=== PATIENT | female | born 1955 | race Caucasian/White ===

== ENCOUNTER → 2017-01-30 | Outpatient (CLI) | payer OTHER ==
--- NOTE | 2017-01-31 09:20 | MM ---
Reason for exam: screening (asymptomatic). Last mammogram was performed 1 year and 2 months ago. History: Patient is postmenopausal. Benign core biopsy of the right breast, March 2007. Took estrogen for 12 years beginning at age 40. Physical Findings: A clinical breast exam by your physician is recommended on an annual basis and results should be correlated with mammographic findings. MG 3D Screening Mammo W/Cad Bilateral CC and MLO view(s) were taken. Prior study comparison: November 23, 2015, bilateral MG screening mammo w CAD. April 14, 2014, bilateral MG screening mammo w CAD. There are scattered fibroglandular densities. Previous mammotome biopsy in the right breast. There is chronic nodularity in the right breast. No significant changes when compared with prior studies. ASSESSMENT: Benign, BI-RAD 2 RECOMMENDATION: Routine screening mammogram of both breasts in 1 year.
== END | disposition home or self-care (01) ==
LOC: RADMAMWWP 08:57
PROVIDERS: ATTEND Family Medicine
DX: Z12.31 Encounter for screening mammogram for malignant neoplasm of breast (principal)
CPT/HCPCS: 77063; G0202

== ENCOUNTER → 2017-05-07 | Outpatient (CLI) | payer OTHER ==
[2017-05-07 11:31] LABS: Basophils % (A) 0 %; Eosinophils # (A) 0.1 k/uL (0-0.7); Eosinophils % (A) 2 %; HCT 46.1 % (34.0-46.0); HGB 14.3 gm/dL (11.4-16.0); Lymphocytes # (A) 1.8 k/uL (1.0-4.8); Lymphocytes % (A) 32 %; MCH 27.6 pg (25.0-35.0); MCV 88.8 fL (80.0-100.0); Mean Platelet Volume 8.2; Monocytes # (A) 0.4 k/uL (0-1.0); Monocytes % (A) 8 %; Neutrophils # (A) 3.2 k/uL (1.3-7.7); Neutrophils % (A) 56 %; Platelet Count 250 k/uL (150-450); RBC 5.19 m/uL (3.80-5.40); WBC 5.8 k/uL (3.8-10.6)
--- NOTE | 2017-05-07 11:40 | CT ---
EXAMINATION TYPE: CT angio chest DATE OF EXAM: 05/07/2017 COMPARISON: NONE HISTORY: Shortness of breath rule out pulmonary embolism CT DLP: 180.00 mGycm. Automated Exposure Control for Dose Reduction was Utilized. CONTRAST: CTA scan of the thorax is performed without and with IV Contrast, patient injected with 100 ml mL of Omnipaque 350, pulmonary embolism protocol. MIP Images are created on CT scanner and reviewed. FINDINGS: LUNGS: There is mild biapical pleural/parenchymal scarring. There is no suspicious parenchymal nodule or mass. There is no pleural effusion or pneumothorax seen. The tracheobronchial tree is patent. MEDIASTINUM: There is suboptimal bolus with near equal contrast seen in right and left heart systems but there is no CT evidence for pulmonary embolism. There are no greater than 1 cm hilar or mediasti nal lymph nodes. No cardiomegaly or pericardial effusion is seen. OTHER: There is moderate multilevel spurring in the thoracic spine. There is 1.1 cm splenic artery an eurysm axial image 143 incidentally noted. Nodular density inferior medial quadrant right breast ante rior to biopsy clip axial image 58 series 4 corresponds to chronic nodularity on review of recent humaira mograms. IMPRESSION: No CT evidence for pulmonary embolism. No suspicious acute pulmonary process. Results communicated to ordering physician via telephone as requested at time of dictation. A Document Only message has been documented for Nellie Kirkpatrick III, MD in the [facility] system on 05/07/2017 11:36 AM, Message ID [id number].
[2017-05-07 12:00] LABS: ALT 16 U/L (9-52); AST 29 U/L (14-36); Albumin 4.7 g/dL (3.5-5.0); Alkaline Phosphatase 88 U/L (38-126); Anion Gap 11 mmol/L; Blood Urea Nitrogen 15 mg/dL (7-17); Calcium 9.8 mg/dL (8.4-10.2); Carbon Dioxide 30 mmol/L (22-30); Chloride 102 mmol/L (98-107); Glucose 97 mg/dL (74-99); Potassium 4.7 mmol/L (3.5-5.1); Sodium 143 mmol/L (137-145); Total Bilirubin 0.4 mg/dL (0.2-1.3); Total Protein 7.8 g/dL (6.3-8.2)
[2017-05-07 12:21] LABS: Troponin I <0.012 ng/mL (0.000-0.034)
[2017-05-07 15:21] LABS: Creatine Kinase MB 1.1 ng/mL (0.0-2.4)
== END | disposition home or self-care (01) ==
LOC: RADCTMAIN 10:52
PROVIDERS: ATTEND Family Medicine
DX: R06.02 Shortness of breath (principal); R07.9 Chest pain, unspecified
CPT/HCPCS: 85379; 80053; 82553; 84484; 85025; 71275; 36415; Q9967

== ENCOUNTER → 2018-02-12 | Outpatient (CLI) | payer OTHER ==
--- NOTE | 2018-02-12 17:26 | BD ---
EXAMINATION TYPE: Axial Bone Density DATE OF EXAM: 02/12/2018 COMPARISON: 11.23.2015 CLINICAL HISTORY: 62 YR OLD FEMALE.....ICD-10 CODE: M810.0 OSTEOPOROSIS Height: 64 Weight: 131 FRAX RISK QUESTIONS: Family History (Parent hip fracture): NO FX History of Fracture in Adulthood: YOUNG ADULT ONLY Secondary Osteoporosis: YES 3. Menopause before 45: YES, AT AGE 40 YRS OLD RISK FACTORS HISTORY OF: HX OF RT ANKLE YOUNG ADULT Family History of Osteoporosis: YES, HER MOTHER, NO FX Active: YES Postmenopausal woman: YES AT AGE 40 YRS OLD, Take estrogen and/or progesterone medications: YES, FOR 12 YRS IN PAST...NONE NOW MEDICATIONS: Osteoporosis Medications: YES, FOSAMAX, FOR 2 YRS NOW Additional Medications: XANAX PRN, BP MEDS, CALCIUM AND VIT D3, Additional History: ANXIETY, HYPERTENSION EXAM MEASUREMENTS: Bone mineral densitometry was performed using the [employer] System. Bone mineral density as measured about the Lumbar spine is: ----- L1-L4(G/cm2): 1.174 T Score Values are as follows: ----- L1: -0.1 ----- L2: -0.6 ----- L3: 0.7 ----- L4: -0.4 ----- L1-L4: -0.1 Bone mineral density has: Increased 7.2% since study of: 11.23.2015 Bone mineral density about the R hip (g/cm2): 0.711 Bone mineral density about the L hip (g/cm2): 0.782 T Score values are as follows: -----R Neck: -2.3 -----L Neck: -1.0 -----R Total: -2.4 -----L Total: -1.8 Bone mineral density has: Increased 5.1% since study of: 11.23.2015 FRAX%s: THERE IS A 11.3% CHANCE FOR A MAJOR OSTEOPOROTIC FX AND A 2.1% FOR HIP FX....PROBABILITY OF FX IN 10 YRS TIME IMPRESSION: Osteopenia (T Score between -2.5 and -1). There is slightly increased risk of fracture and the patient may be considered for treatment. Re-Screen 2-5 years. NOTE: T-SCORE=SD OF THE YOUNG ADULT MEAN.
--- NOTE | 2018-02-14 08:37 | MM ---
Reason for exam: screening (asymptomatic). Last mammogram was performed 1 year ago. History: Patient is postmenopausal. Benign core biopsy of the right breast, March 2007. Took estrogen for 12 years beginning at age 40. Physical Findings: A clinical breast exam by your physician is recommended on an annual basis and results should be correlated with mammographic findings. MG Screening Mammo w CAD Bilateral CC and MLO view(s) were taken. Prior study comparison: January 30, 2017, bilateral MG 3d screening mammo w/cad. November 23, 2015, bilateral MG screening mammo w CAD. The breast tissue is heterogeneously dense. This may lower the sensitivity of mammography. Previous mammotome biopsy in the right breast. There is chronic nodularity in the right breast. No significant changes when compared with prior studies. ASSESSMENT: Negative, BI-RAD 1 RECOMMENDATION: Routine screening mammogram of both breasts in 1 year.
== END | disposition home or self-care (01) ==
LOC: RADMAMWWP 14:20
PROVIDERS: ATTEND Family Medicine
DX: Z12.31 Encounter for screening mammogram for malignant neoplasm of breast (principal); M85.851 Other specified disorders of bone density and structure, right thigh; M85.852 Other specified disorders of bone density and structure, left thigh
CPT/HCPCS: 77067; 77080

== ENCOUNTER 2018-12-14 05:42 | Observation (INO) | payer OTHER ==
--- NOTE | 2018-12-14 06:48 | CT ---
EXAMINATION TYPE: CT brain wo con DATE OF EXAM: 12/14/2018 COMPARISON: None HISTORY: Syncopal episode with fall. CT DLP: 1098.4 mGycm Automated exposure control for dose reduction was used. FINDINGS: Ventricles have normal size. There is no mass effect nor midline shift. There is no sign of intracran ial hemorrhage. Calvarium is intact. There is no evidence of cerebral edema. IMPRESSION: NEGATIVE CT SCAN OF THE BRAIN.
--- NOTE | 2018-12-14 06:49 | XR ---
EXAMINATION TYPE: XR chest 2V DATE OF EXAM: 12/14/2018 COMPARISON: NONE HISTORY: Syncope TECHNIQUE: Frontal and lateral views of the chest are obtained. FINDINGS: Heart and mediastinum are normal. Lungs are clear. Diaphragm is normal. There are chest le ads. Bony thorax is intact. IMPRESSION: Normal chest.
[2018-12-14 07:02] LABS: Basophils % (A) 1 %; Eosinophils # (A) 0.2 k/uL (0-0.7); Eosinophils % (A) 4 %; HCT 38.2 % (34.0-46.0); HGB 13.1 gm/dL (11.4-16.0); Lymphocytes # (A) 2.3 k/uL (1.0-4.8); Lymphocytes % (A) 40 %; MCH 28.5 pg (25.0-35.0); MCHC 34.3 g/dL (31.0-37.0); MCV 83.2 fL (80.0-100.0); Mean Platelet Volume 7.6; Monocytes # (A) 0.4 k/uL (0-1.0); Monocytes % (A) 7 %; Neutrophils # (A) 2.6 k/uL (1.3-7.7); Neutrophils % (A) 46 %; Platelet Count 239 k/uL (150-450); RBC 4.59 m/uL (3.80-5.40); WBC 5.7 k/uL (3.8-10.6)
[2018-12-14 07:15] LABS: ALT 21 U/L (9-52); AST 36 U/L (14-36); African American GFR (CKD) >90 (>60 ml/min/1.73 sqM); Albumin 3.8 g/dL (3.5-5.0); Alkaline Phosphatase 68 U/L (38-126); Anion Gap 9 mmol/L; Blood Urea Nitrogen 19 mg/dL (7-17); Calcium 9.1 mg/dL (8.4-10.2); Carbon Dioxide 25 mmol/L (22-30); Chloride 104 mmol/L (98-107); Glucose 156 mg/dL (74-99); Potassium 3.9 mmol/L (3.5-5.1); Sodium 138 mmol/L (137-145); Total Bilirubin 0.5 mg/dL (0.2-1.3); Total Protein 6.5 g/dL (6.3-8.2)
[2018-12-14 07:26] LABS: INR 0.9 (<1.2); Prothrombin Time 9.7 sec (9.0-12.0)
[2018-12-14 07:32] LABS: D-Dimer 0.73 mg/L FEU (<0.60)
[2018-12-14 07:32] LABS: Appearance,Urine Clear (Clear); Bilirubin,Urine Negative (Negative); Blood,Urine Trace (Negative); Color,Urine Yellow; Glucose,Urine (UA) Negative (Negative); Hyaline Casts,Urine 8 /lpf (0-2); Ketones,Urine Negative (Negative); Leukocyte Esterase,Urine Small (Negative); Mucus,Urine Few /hpf; Nitrite,Urine Negative (Negative); PH, Urine 5.5 (5.0-8.0); Protein,Urine 1+ (Negative); RBC,Urine 3 /hpf (0-5); Specific Gravity,Urine 1.022 (1.001-1.035); Squamous Epithelial Cell,Urine 1 /hpf (0-4); Urobilinogen,Urine <2.0 mg/dL (<2.0); WBC,Urine 7 /hpf (0-5)
--- NOTE | 2018-12-14 08:41 | CT ---
EXAMINATION TYPE: CT angio chest DATE OF EXAM: 12/14/2018 8:31 AM COMPARISON: Previous study dated 05/07/2017. HISTORY: elevated Ddimer CT DLP: 271.2 mGycm Automated exposure control for dose reduction was used. CONTRAST: CTA scan of the thorax is performed with IV Contrast, patient injected with 78 mL of Isovue 370, pulm onary embolism protocol. . FINDINGS: There is scarring at the lung apices bilaterally. There is a stable spiculated density in t he right lung apex. The lungs are otherwise clear. There is no suspicious axillary, internal mammary, mediastinal or hilar adenopathy. There is no evidence of pulmonary embolus. The aorta is normal in caliber without evidence of dissection. No pleural or pericardial fluid. The heart is not enlarged. Visualized portions of the upper abdomen are normal. There is hypertrophic spondylosis within the dorsal spine. IMPRESSION: 1. THIS EXAMINATION IS NEGATIVE FOR PULMONARY EMBOLUS. 2. STABLE FINDING THE LUNG APICES BILATERALLY
--- NOTE | 2018-12-14 08:49 | ED ---
General Adult HPI - General Chief complaint: Syncope Stated complaint: Syncope Time Seen by Provider: 12/14/18 06:09 Source: patient, EMS Mode of arrival: EMS Limitations: no limitations - History of Present Illness Initial comments: 63-year-old female past history of hypertension presents emergency department for evaluation of syncopal episode. Patient states his prior to arrival she collapsed in her bathroom. She was found by her mother who heard the patient fall. Patient was found face down no seizure-like activity. And was aroused within 1-3 minutes. No bladder incontinence. Patient complaining of headache. Patient states she no chest pain source of breath or any symptoms prior SI for feeling as though she was lightheaded and going to pass out. Patient states she woke up in the middle the night to wash her retainer. Patient denies any suspicious symptoms a days prior. Patient denies experiencing chest pain or shortness of breath in the past. Patient denies any cardiac history. Patient denies any history of DVT or pulmonary embolism denies any leg swelling, hemoptysis. Patient denies any sensation of her heart racing. Patient denies any severe neck pain she denies any dizziness nausea abdominal pain all amount of stools hematemesis or bloody stools. Remaining review of system negative. Upon arrival patient appears well signs acute distress. Patient is on telemetry and was brought in by EMS. - Related Data Home Medications Medication Instructions Recorded Confirmed ALPRAZolam [Xanax] 0.125 - 0.25 mg PO TID PRN 12/14/18 12/14/18 Alendronate Sodium [Fosamax] 70 mg PO TU 12/14/18 12/14/18 Benazepril [Lotensin] 5 mg PO HS 12/14/18 12/14/18 Allergies Allergy/AdvReac Type Severity Reaction Status Date / Time No Known Allergies Allergy Verified 12/14/18 09:24 Review of Systems ROS Statement: Those systems with pertinent positive or pertinent negative responses have been documented in the HPI. ROS Other: All systems not noted in ROS Statement are negative. Past Medical History Past Medical History: Hypertension History of Any Multi-Drug Resistant Organisms: None Reported Past Surgical History: No Surgical Hx Reported Past Psychological History: No Psychological Hx Reported Smoking Status: Never smoker Past Alcohol Use History: Occasional Past Drug Use History: None Reported General Exam - General Exam Comments Initial Comments: General: The patient is awake and alert, in no distress, and does not appear acutely ill. Eye: +3 mm pupils are equal, round and reactive to light, extra-ocular movements are intact. No nystagmus. There is normal conjunctiva bilaterally. No signs of icterus. Ears, nose, mouth and throat: There are moist mucous membranes and no oral lesions. Neck: The neck is supple, there is no tenderness or JVD. No midlines tenderness to palpation of the c-spine, patient does have paravertebral t enderness. Full ROM without limitations or severe pain. Cardiovascular: There is a regular rate and rhythm. No murmur, rub or gallop is appreciated. Respiratory: Lungs are clear to auscultation, respirations are non-labored, breath sounds are equal. No wheezes, stridor, rales, or rhonchi. Gastrointestinal: Soft, non-distended, non-tender abdomen without masses or organomegaly noted. There is no rebound or guarding present. Musculoskeletal: Normal ROM, no tenderness. Strength 5/5. Sensation intact. Pulses equal bilaterally 2+. Neurological: A&O x 3. CN II-XII intact, There are no obvious motor or sensory deficits. Coordination appears grossly intact. Speech is normal. Skin: Skin is warm and dry and no rashes or lesions are noted. No LE edema. Psychiatric: Cooperative, appropriate mood & affect, normal judgment. Limitations: no limitations Course Vital Signs 12/14/18 12/14/18 05:50 07:16 Temperature 97.8 F Pulse Rate 54 L Pulse Rate [ 67 Sitting] Pulse Rate [ 68 Standing] Pulse Rate [ 64 Supine] Respiratory 18 Rate Blood Pressure 145/83 Blood Pressure 151/83 [Sitting] Blood Pressure 136/78 [Standing] Blood Pressure 136/78 [Supine] O2 Sat by Pulse 98 Oximetry EKG Findings - EKG Comments: EKG Findings:: Ventricular rate 53 bpm, NH interval 170 ms, QRS duration 92 ms, QT/QTC 450/422 ms. This is sinus bradycardia, no ST elevation or depression. No contiguous T wave inversions. EKG was percent interpreted and reviewed by my attending provider. Medical Decision Making - Medical Decision Making 63-year-old female presents emergency department for syncopal episode. Patient does not have positive orthostatics. Patient does not appear dry on examination no evidence of fluid overload. Lungs clear. Initial troponin negative. No compressive chest pain or shortness of breath. Patient has no leg swelling or history of DVT pulmonary. D-dimer returned elevated, CTA (-). CT brain obtained given history of head injury. Recommend or Wooten signs or signs of significant skull trauma on examination. Patient has no focal neurolgical def icits. Paravertebral tenderness of c-spine, patient describes as very mild. Plain films (-) for acute process. Patient Labs stable. VS stable. At this time that caused the patient's syncopal episode is unknown. Given patient's age--we will admit patient for cardiac evaluation including echo. Dr. Wade spoke with admitting provider Dr Simpson in detail who accepted admission. - Lab Data Result diagrams: 12/14/18 05:50 12/14/18 05:50 Lab Results 12/14/18 12/14/18 12/14/18 Range/Units 05:50 05:50 05:50 WBC 5.7 (3.8-10.6) k/uL RBC 4.59 (3.80-5.40) m/uL Hgb 13.1 (11.4-16.0) gm/dL Hct 38.2 (34.0-46.0) % MCV 83.2 (80.0-100.0) fL MCH 28.5 (25.0-35.0) pg MCHC 34.3 (31.0-37.0) g/dL RDW 13.0 (11.5-15.5) % Plt Count 239 (150-450) k/uL Neutrophils % 46 % Lymphocytes % 40 % Monocytes % 7 % Eosinophils % 4 % Basophils % 1 % Neutrophils # 2.6 (1.3-7.7) k/uL Lymphocytes # 2.3 (1.0-4.8) k/uL Monocytes # 0.4 (0-1.0) k/uL Eosinophils # 0.2 (0-0.7) k/uL Basophils # 0.0 (0-0.2) k/uL PT 9.7 (9.0-12.0) sec INR 0.9 (<1.2) APTT 21.0 L (22.0-30.0) sec D-Dimer 0.73 H (<0.60) mg/L FEU Sodium 138 (137-145) mmol/L Potassium 3.9 (3.5-5.1) mmol/L Chloride 104 (98-107) mmol/L Carbon Dioxide 25 (22-30) mmol/L Anion Gap 9 mmol/L BUN 19 H (7-17) mg/dL Creatinine 0.72 (0.52-1.04) mg/dL Est GFR (CKD-EPI)AfAm >90 (>60 ml/min/1.73 sqM) Est GFR (CKD-EPI)NonAf 90 (>60 ml/min/1.73 sqM) Glucose 156 H (74-99) mg/dL Calcium 9.1 (8.4-10.2) mg/dL Total Bilirubin 0.5 (0.2-1.3) mg/dL AST 36 (14-36) U/L ALT 21 (9-52) U/L Alkaline Phosphatase 68 (38-126) U/L Troponin I (0.000-0.034) ng/mL Total Protein 6.5 (6.3-8.2) g/dL Albumin 3.8 (3.5-5.0) g/dL Urine Color Urine Appearance (Clear) Urine pH (5.0-8.0) Ur Specific Corbin (1.001-1.035) Urine Protein (Negative) Urine Glucose (UA) (Negative) Urine Ketones (Negative) Urine Blood (Negative) Urine Nitrite (Negative) Urine Bilirubin (Negative) Urine Urobilinogen (<2.0) mg/dL Ur Leukocyte Esterase (Negative) Urine RBC (0-5) /hpf Urine WBC (0-5) /hpf Ur Squamous Epith Cells (0-4) /hpf Hyaline Casts (0-2) /lpf Urine Mucus (None) /hpf 12/14/18 12/14/18 Range/Units 05:50 07:22 WBC (3.8-10.6) k/uL RBC (3.80-5.40) m/uL Hgb (11.4-16.0) gm/dL Hct (34.0-46.0) % MCV (80.0-100.0) fL MCH (25.0-35.0) pg MCHC (31.0-37.0) g/dL RDW (11.5-15.5) % Plt Count (150-450) k/uL Neutrophils % % Lymphocytes % % Monocytes % % Eosinophils % % Basophils % % Neutrophils # (1.3-7.7) k/uL Lymphocytes # (1.0-4.8) k/uL Monocytes # (0-1.0) k/uL Eosinophils # (0-0.7) k/uL Basophils # (0-0.2) k/uL PT (9.0-12.0) sec INR (<1.2) APTT (22.0-30.0) sec D-Dimer (<0.60) mg/L FEU Sodium (137-145) mmol/L Potassium (3.5-5.1) mmol/L Chloride (98-107) mmol/L Carbon Dioxide (22-30) mmol/L Anion Gap mmol/L BUN (7-17) mg/dL Creatinine (0.52-1.04) mg/dL Est GFR (CKD-EPI)AfAm (>60 ml/min/1.73 sqM) Est GFR (CKD-EPI)NonAf (>60 ml/min/1.73 sqM) Glucose (74-99) mg/dL Calcium (8.4-10.2) mg/dL Total Bilirubin (0.2-1.3) mg/dL AST (14-36) U/L ALT (9-52) U/L Alkaline Phosphatase (38-126) U/L Troponin I <0.012 (0.000-0.034) ng/mL Total Protein (6.3-8.2) g/dL Albumin (3.5-5.0) g/dL Urine Color Yellow Urine Appearance Clear (Clear) Urine pH 5.5 (5.0-8.0) Ur Specific [place] 1.022 (1.001-1.035) Urine Protein 1+ H (Negative) Urine Glucose (UA) Negative (Negative) Urine Ketones Negative (Negative) Urine Blood Trace H (Negative) Urine Nitrite Negative (Negative) Urine Bilirubin Negative (Negative) Urine Urobilinogen <2.0 (<2.0) mg/dL Ur Leukocyte Esterase Small H (Negative) Urine RBC 3 (0-5) /hpf Urine WBC 7 H (0-5) /hpf Ur Squamous Epith Cells 1 (0-4) /hpf Hyaline Casts 8 H (0-2) /lpf Urine Mucus Few H (None) /hpf Disposition Clinical Impression: Episode of syncope, Head injury Disposition: ADMITTED IP TO THIS HOSP Condition: Stable Is patient prescribed a controlled substance at d/c from ED?: No Referrals: Samia Phillips MD [Primary Care Provider] - 1-2 days Time of Disposition: 10:24 Decision to Admit Reason: Admit from EC Decision Date: 12/14/18 Decision Time: 10:24
--- NOTE | 2018-12-14 09:34 | XR ---
EXAMINATION TYPE: XR cervical spine comp , 6 VIEWS DATE OF EXAM ORDERED: 12/14/2018 HISTORY: tenderness. COMPARISON: None. FINDINGS: There is a minimal antegrade listhesis of C4 on C5. Alignment is otherwise maintained. Trevor antoaxial relationships are normal. No fractures are seen. There is intervertebral foraminal narrowin g on the right, most marked at C5-6 and C6-7 but also present at C4-5. Intervertebral foramina on the left appear well maintained. There is uncovertebral joint disease present at C5-6. No fractures are seen. Prevertebral soft tissues are normal. IMPRESSION: 1. NO ACUTE OSSEOUS LESION. 2. DEGENERATIVE CHANGE. 3. MULTILEVEL INTERVERTEBRAL FORAMINAL NARROWING ON THE RIGHT.
[2018-12-14] MEDS ORDERED: NALOXONE 0.4 MG/ML 1 ML VIAL IV PRN (09:41)
[2018-12-14] MEDS ORDERED: SODIUM CHLORIDE 0.9% 1,000 ML IV SCH (09:45)
--- NOTE | 2018-12-14 13:09 | P.HPIM ---
History of Present Illness 63-year-old pleasant female came in after a syncopal episode her mother was was present at the time. patient felt lightheaded because before syncope patient denied any seizure-like activity patient was in and out of consciousness all throughout the right, denied any tongue biting seizure-like activity loss of bowel or bladder incontinence. Although patient has some memory deficits since that episode never had any memory issues in the past. Patient denied any fever chills diarrhea nausea vomiting. Patient's serum creatinine is within normal limits patient doesn't appear to be dehydrated EKG showed mild sinus bradycardia which I do not believe is contributing to her symptoms. Patient is admitted to monitor tech will will will monitor overnight. Patient had minimally elevated d-dimer because of which patient received a CAT scan of the chest which did not show any PE brain CT did not show any significant abnormality. We'll obtain echocardiogram. Orthostatic vitals are negative. Because of her memory deficits TIA need to be considered as a cause for possible transient global amnesia because of which are pending carotid Doppler as will continue with aspirin and will also obtain lipase panel patient is doing well now no focal neurological deficits no visual problems or hearing problems. Review of Systems REVIEW OF SYSTEMS: CONSTITUTIONAL: No fever, no malaise, no fatigue. HEENT: No recent visual problems or hearing problems. Denied any sore throat. CARDIOVASCULAR: No chest pain, orthopnea, PND, no palpitations, PULMONARY: No shortness of breath, no cough, no hemoptysis. GASTROINTESTINAL: No diarrhea, no nausea, no vomiting, no abdominal pain. NEUROLOGICAL: No headaches, no weakness, no numbness. HEMATOLOGICAL: Denies any bleeding or petechiae. GENITOURINARY: Denies any burning micturition, frequency, or urgency. MUSCULOSKELETAL/RHEUMATOLOGICAL: Denies any joint pain, swelling, or any muscle pain. ENDOCRINE: Denies any polyuria or polydipsia. The rest of the 14-point review of systems is negative. Past Medical History Past Medical History: Hypertension History of Any Multi-Drug Resistant Organisms: None Reported Past Surgical History: No Surgical Hx Reported Past Psychological History: No Psychological Hx Reported Smoking Status: Never smoker Past Alcohol Use History: Occasional Past Drug Use History: None Reported Medications and Allergies Home Medications Medication Instructions Recorded Confirmed Type ALPRAZolam [Xanax] 0.125 - 0.25 mg PO TID PRN 12/14/18 12/14/18 History Alendronate Sodium [Fosamax] 70 mg PO TU 12/14/18 12/14/18 History Benazepril [Lotensin] 5 mg PO HS 12/14/18 12/14/18 History Allergies Allergy/AdvReac Type Severity Reaction Status Date / Time No Known Allergies Allergy Verified 12/14/18 09:24 Physical Exam Vitals: Vital Signs Temp Pulse Pulse Pulse Pulse Resp BP 12/14/18 11:00 61 16 147/83 12/14/18 07:16 67 68 64 12/14/18 05:50 97.8 F 54 L 18 145/83 BP BP BP Pulse Ox 12/14/18 11:00 98 12/14/18 07:16 151/83 136/78 136/78 12/14/18 05:50 98 Intake and Output 12/13/18 12/14/18 12/14/18 22:59 06:59 14:59 Other: Weight 58.967 kg PHYSICAL EXAMINATION: GENERAL: The patient is alert and oriented x3, not in any acute distress. Well developed, well nourished. HEENT: Pupils are round and equally reacting to light. EOMI. No scleral icterus. No conjunctival pallor. Normocephalic, atraumatic. No pharyngeal erythema. No thyromegaly. CARDIOVASCULAR: S1 and S2 present. No murmurs, rubs, or gallops. PULMONARY: Chest is clear to auscultation, no wheezing or crackles. ABDOMEN: Soft, nontender, nondistended, normoactive bowel sounds. No palpable organomegaly. MUSCULOSKELETAL: No joint swelling or deformity. EXTREMITIES: No cyanosis, clubbing, or pedal edema. NEUROLOGICAL: Gross neurological examination did not reveal any focal deficits. SKIN: No rashes. Results CBC & Chem 7: 12/14/18 05:50 12/14/18 05:50 Labs: Abnormal Lab Results - Last 24 Hours (Table) 12/14/18 12/14/18 12/14/18 Range/Units 05:50 05:50 07:22 APTT 21.0 L (22.0-30.0) sec D-Dimer 0.73 H (<0.60) mg/L FEU BUN 19 H (7-17) mg/dL Glucose 156 H (74-99) mg/dL Urine Protein 1+ H (Negative) Urine Blood Trace H (Negative) Ur Leukocyte Esterase Small H (Negative) Urine WBC 7 H (0-5) /hpf Hyaline Casts 8 H (0-2) /lpf Urine Mucus Few H (None) /hpf Assessment and Plan Plan: Syncope: Most probably vasovagal event, obtain an echocardiogram will monitor here overnight on telemetry. Cousin that patient has some memory deficits TIAs and differential as a cause for possible transient global amnesia because of which I'll obtain a carotid Doppler and lipid panel as well as mentioned above. -Possibility of TIA that cannot be ruled out yet, continue with aspirin -Hypertension patient blood pressures fairly stable and not flow continue with her home medication
--- NOTE | 2018-12-14 14:51 | US ---
EXAMINATION TYPE: US carotid duplex BILAT DATE OF EXAM: 12/14/2018 COMPARISON: NONE CLINICAL HISTORY: tia. Syncope EXAM MEASUREMENTS: RIGHT: Peak Systolic Velocity (PSV) cm/sec ----- Right CCA: 63.3 ----- Right ICA: 90.7 ----- Right ECA: 109.2 ICA/CCA ratio: 1.4 RIGHT: End Diastole cm/sec ----- Right CCA: 17.1 ----- Right ICA: 30.0 ----- Right ECA: 13.9 LEFT: Peak Systolic Velocity (PSV) cm/sec ----- Left CCA: 67.7 ----- Left ICA: 107.7 ----- Left ECA: 106.3 ICA/CCA ratio: 1.6 LEFT: End Diastole cm/sec ----- Left CCA: 20.4 ----- Left ICA: 32.6 ----- Left ECA: 12.4 VERTEBRALS (direction of flow): Right Vertebral: Antegrade Left Vertebral: Antegrade Rhythm: Normal No elevated velocities, no significant stenosis. Mild intimal thickening appears to be present on the right. Atheromatous plaquing and more moderate i ntimal thickening is present on the left. Turbulent flow is evident on the left with filling of the a coustic window. IMPRESSION: 1. Atheromatous plaquing and intimal thickening present bilaterally, greater on the left. 2. Significant flow-limiting stenosis based on velocities is not present. Criteria for Assigning % of Stenosis / Diameter reduction (Estimation based on the indirect measurements of the internal carotid artery velocities (ICA PSV). 1. Normal (no stenosis)=ICA PSV < 125 cm/s: ratio < 2.0: ICA EDV<40 cm/s. 2. Less than 50% stenosis=ICA PSV < 125 cm/s: ratio < 2.0: ICA EDV<40 cm/s. 3. 50 to 69% stenosis=ICA PSV of 125 to 230 cm/s: ration 2.0 ? 4.0: ICA EDV 40-100 cm/s. 4. Greater than 70% stenosis to near occlusion= ICA PSV > 230 cm/s: ratio > 4.0: ICA EDV > 100 cm/s. 5. Near occlusion= ICA PSV velocities may be low or undetectable: variable ratio and ICA EDV. 6. Total occlusion=unable to detect flow.
--- NOTE | 2018-12-14 16:07 | ECHOF ---
Referral Reason:syncope MEASUREMENTS -------- HEIGHT: 162.6 cm WEIGHT: 59.0 kg BP: RVIDd: 3.5 cm (< 3.3) IVSd: 1.0 cm (0.6 - 1.1) LVIDd: 4.0 cm (3.9 - 5.3) LVPWd: 1.1 cm (0.6 - 1.1) IVSs: 1.3 cm LVIDs: 2.4 cm LVPWs: 1.4 cm LA Diam: 3.2 cm (2.7 - 3.8) LAESV Index (A-L): 19.45 ml/m Ao Diam: 2.7 cm (2.0 - 3.7) AV Cusp: 1.8 cm (1.5 - 2.6) LA Diam: 2.8 cm (2.7 - 3.8) MV EXCURSION: 17.614 mm (> 18.000) MV EF SLOPE: 58 mm/s (70 - 150) EPSS: 0.2 cm MV E James: 0.70 m/s MV DecT: 298 ms MV A James: 0.85 m/s MV E/A Ratio: 0.82 RAP: 5.00 mmHg RVSP: 16.30 mmHg FINDINGS -------- Sinus rhythm. This was a technically good study. LV size, wall thickness and systolic function are normal, with an EF greater than 55%. The left salas tricular size is normal. The diastolic filling pattern is normal for the age of the patient 10.14. The right ventricle is normal in size. Normal LA size by volume 22+/-6 ml/m2. The right atrial size is normal. The aortic valve is trileaflet, and appears structurally normal. No aortic stenosis or regurgitation. The mitral valve is normal. Mild mitral regurgitation is present. Mild tricuspid regurgitation present. There is no evidence of pulmonary hypertension. The right v entricular systolic pressure, as measured by Doppler, is 16.30mmHg. Trace/mild (physiologic) pulmonic regurgitation. The aortic root size is normal. There is no pericardial effusion. CONCLUSIONS -------- 1. Sinus rhythm. 2. This was a technically good study. 3. LV size, wall thickness and systolic function are normal, with an EF greater than 55%. 4. The left ventricular size is normal. 5. The diastolic filling pattern is normal for the age of the patient 10.14 6. Normal LA size by volume 22+/-6 ml/m2. 7. The aortic valve is trileaflet, and appears structurally normal. No aortic stenosis or regurgitati on. 8. Mild mitral regurgitation is present. 9. Mild tricuspid regurgitation present. 10. There is no evidence of pulmonary hypertension. 11. Trace/mild (physiologic) pulmonic regurgitation. 12. The aortic root size is normal. 13. There is no pericardial effusion. AIR GUN OPERATOR: Arabella Guerrero RDCS
--- NOTE | 2018-12-14 17:41 | CONS ---
CONSULTATION Mrs. Cardenas is a 63-year-old female with no prior documented history coronary artery disease, history of hypertension, who presented to the emergency room after a syncopal episode. 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 She had no tonic-clonic activity, no loss of bladder control and no focal weakness. She is feeling well this morning. She is usually reasonably active physically, has no exertional chest discomfort, has no history of cardiac disease. She has rare palpitations that have been benign in the past. She has no recent syncope. No PND, orthopnea or peripheral edema. Her coronary risk factors are remarkable for hypertension. She is nondiabetic, a nonsmoker. No hyperlipidemia. MEDICATIONS: Her medications include: 1. Lotensin 5 mg daily. 2. Fosamax. 3. Xanax on a p.r.n. basis. REVIEW OF SYSTEMS: RESPIRATORY SYSTEM: No recent wheezing. No cough. No history of obstructive lung disease. GI SYSTEM: No recent GI bleeding. No peptic ulcer disease. SYSTEM: No dysuria or hematuria. NERVOUS SYSTEM: No stroke or seizure. PHYSICAL EXAMINATION: She is a 63-year-old female, alert, oriented, in no apparent distress. Blood pressure 147/80 with a heart rate in the 60s. Patient had mild orthostasis earlier. HEAD: Normocephalic. Eyes: Sclerae anicteric. NECK: Good carotid upstroke. No bruit. No jugular venous distention. LUNGS: Clear to auscultation. HEART: Regular rate and rhythm. S1, S2. No S3. No S4. No murmur or rub. ABDOMEN: Soft, nontender. Positive bowel sounds. No organomegaly. EXTREMITIES: No edema. Intact distal pulses. LAB DATA/IMAGING: Lab data revealed a troponin less than 0.012 for 2 samples. BUN and creatinine 19 and 0.72. Potassium 3.9. D-dimer 0.73. Hemoglobin of 13.1. CT angiogram of the chest revealed no evidence of pulmonary embolism. Carotid duplex scan revealed no significant disease. EKG revealed sinus bradycardia, rate of 53, with nonspecific ST-T wave changes. IMPRESSION: 1. Syncopal episode, probably orthostatic hypotension. 2. History of hypertension. RECOMMENDATIONS: Will obtain echocardiogram, increase her level of activity, follow her blood pressure and rhythm. If there is no evidence of arrhythmia, then no further cardiac workup will be needed at this time. Thank you for this consult. Will follow with you. RAFAT / ANGELLA: [id number] /
[2018-12-14] MEDS ORDERED: ACETAMINOPHEN TAB 325 MG TAB PO PRN (20:00)
[2018-12-14 20:17] VITALS: RESP 16
[2018-12-14] MEDS ORDERED: LISINOPRIL 5 MG TAB PO SCH (21:00)
[2018-12-15 05:40] LABS: Cholesterol 226 mg/dL (<200); HDL Cholesterol 60 mg/dL (40-60); LDL Cholesterol,Calculated 147 mg/dL (0-99); Triglycerides 96 mg/dL (<150)
--- NOTE | 2018-12-15 08:33 | P.DS ---
Providers Date of admission: 12/14/18 09:42 Attending physician: Lico Simpson Consults: 12/14/18 09:42 Consult Physician Routine Consulting Provider: Rajesh Cartagena Consult Reason/Comments: syncope Do you want consulting provider notified?: Yes [facility] Course: 63-year-old pleasant female came in after a syncopal episode her mother was was present at the time. patient felt lightheaded because before syncope patient denied any seizure-like activity patient was in and out of consciousness all throughout the right, denied any tongue biting seizure-like activity loss of bowel or bladder incontinence. Although patient has some memory deficits since that episode never had any memory issues in the past. Patient denied any fever chills diarrhea nausea vomiting. Patient's serum creatinine is within normal limits patient doesn't appear to be dehydrated EKG showed mild sinus bradycardia which I do not believe is contributing to her symptoms. Patient is admitted to property assessment monitor will will will monitor overnight. Patient had minimally elevated d-dimer because of which patient received a CAT scan of the chest which did not show any PE brain CT did not show any significant abnormality. We'll obtain echocardiogram. Orthostatic vitals are negative. Because of her memory deficits TIA need to be considered as a cause for possible transient global am nesia because of which are pending carotid Doppler as will continue with aspirin and will also obtain lipase panel patient is doing well now no focal neurological deficits no visual problems or hearing problems. 12/15/2018 All the workup is negative by echocardiogram is within normal limits. Carotid Doppler did not show any significant abnormality. Patient the was in sinus rhythm without any rhythm abnormalities patient will be discharged today patient probably has vasovagal event. If for she has another syncopal episode the week she will need further workup with a Holter monitor and follow-up with cardiology at that time. Patient will be discharged today. Patient will be started on low-dose of aspirin and the and a statin patient's LDL is 147. Dietary counseling was provided. PHYSICAL EXAMINATION: GENERAL: The patient is alert and oriented x3, not in any acute distress. Well developed, well nourished. HEENT: Pupils are round and equally reacting to light. EOMI. No scleral icterus. No conjunctival pallor. Normocephalic, atraumatic. No pharyngeal erythema. No thyromegaly. CARDIOVASCULAR: S1 and S2 present. No murmurs, rubs, or gallops. PULMONARY: Chest is clear to auscultation, no wheezing or crackles. ABDOMEN: Soft, nontender, nondistended, normoactive bowel sounds. No palpable organomegaly. MUSCULOSKELETAL: No joint swelling or deformity. EXTREMITIES: No cyanosis, clubbing, or pedal edema. NEUROLOGICAL: Gross neurological examination did not reveal any focal deficits. SKIN: No rashes. Assessment and Plan Plan: Syncope: Most probably vasovagal event, workup as mentioned above -Possibility of TIA that cannot be ruled out yet, she'll be discharged on aspirin and a statin -Hypertension patient blood pressures fairly stable and not flow continue with her home medication Patient Condition at Discharge: Stable Plan - Discharge Summary Discharge Rx Participant: Yes New Discharge Prescriptions: New Aspirin 81 mg PO DAILY #30 chewable Atorvastatin Calcium [Lipitor] 20 mg PO HS #30 tab No Action Benazepril [Lotensin] 5 mg PO HS ALPRAZolam [Xanax] 0.125 - 0.25 mg PO TID PRN PRN Reason: Anxiety Alendronate Sodium [Fosamax] 70 mg PO TU Discharge Medication List ALPRAZolam [Xanax] 0.125 - 0.25 mg PO TID PRN 12/14/18 [History] Alendronate Sodium [Fosamax] 70 mg PO TU 12/14/18 [History] Benazepril [Lotensin] 5 mg PO HS 12/14/18 [History] Aspirin 81 mg PO DAILY #30 chewable 12/15/18 [Rx] Atorvastatin Calcium [Lipitor] 20 mg PO HS #30 tab 12/15/18 [Rx] Follow up Appointment(s)/Referral(s): Samia Phillips MD [Primary Care Provider] - 3 Days Discharge Disposition: HOME SELF-CARE
[2018-12-15] MEDS ORDERED: ASPIRIN 325 MG TAB PO SCH (09:00)
[2018-12-15] MEDS ORDERED: ASPIRIN 81 MG PO SCH (09:00)
--- NOTE | 2018-12-15 11:19 | P.PN ---
Subjective Progress Note Date: 12/15/18 physical pleasant 62-year-old female patient with history of hypertension. Presented by emergency department after syncopal episode. She woke up early in the morning yesterday at which time she went to the bathroom, stood up and was cleaning retainers when she felt dizzy and subsequently woke up on the floor. She had no evidence of seizure activity. Echocardiogram showed a normal LV systolic function with mild MR and mild TR. She's had no evidence of arrhythmias. Blood pressure is stable. She's had no complaints of dizziness, lightheadedness and no further syncope. Objective - Vital Signs Vital signs: Vital Signs Temp 98.1 F 12/15/18 04:00 Pulse 57 L 12/15/18 04:00 Resp 16 12/15/18 04:00 BP 142/82 12/15/18 04:00 Pulse Ox 97 12/15/18 04:00 Intake & Output 12/14/18 12/15/18 12/15/18 18:59 06:59 18:59 Intake Total 240 464 360 Balance 240 464 360 Weight 59.1 kg Intake: IV 20 0.9 20 Oral 240 444 360 Other: Voiding Method Toilet Toilet # Voids 3 - Exam PHYSICAL EXAMINATION: HEENT: [Head is atraumatic, normocephalic. Pupils equal, round. Neck is supple. There is no elevated jugular venous pressure.] HEART EXAMINATION: [Heart sounds regular, S1 and S2 normal. No murmur or gallop heard.] CHEST EXAMINATION:[ Lungs are clear to auscultation and precussion. No chest wall tenderness is noted on palpation or with deep breathing.] ABDOMEN: [ Soft, nontender. Bowel sounds are heard. No organomegaly noted]. EXTREMITIES:[ 2+ peripheral pulses with no evidence of peripheral edema and no calf tenderness noted]. NEUROLOGIC [patient is awake, alert and oriented x3.] . - Labs CBC & Chem 7: 12/14/18 05:50 12/14/18 05:50 Labs: Abnormal Lab Results - Last 24 Hours (Table) 12/15/18 Range/Units 05:00 Cholesterol 226 H (<200) mg/dL LDL Cholesterol, Calc 147 H (0-99) mg/dL Assessment and Plan Assessment: #1 syncopal episode, probably orthostatic hypotension #2 history of hypertension Plan: from cardiology's perspective no further cardiac workup is needed at this time. Patient may be discharged home from our standpoint. She will be scheduled for a follow-up with Dr. Alcaraz in the office in 1-2 weeks. RUBBISH COLLECTOR note has been reviewed, I agree with a documented findings and plan of care. Patient was seen and examined.
[2018-12-15 11:36] VITALS: BP 140/62; PULSE 70; TEMP 98
== END 2018-12-15 13:18 | disposition home or self-care (01) ==
LOC: EC 05:42 → 1SOBS 09:42 → 3SCARD 14:32
PROVIDERS: ADMIT Internal Medicine; ATTEND Internal Medicine
DX: R55 Syncope and collapse (principal); R42 Dizziness and giddiness; R79.89 Other specified abnormal findings of blood chemistry; R00.1 Bradycardia, unspecified; I10 Essential (primary) hypertension; M47.812 Spondylosis without myelopathy or radiculopathy, cervical region; M48.02 Spinal stenosis, cervical region; S09.90XA Unspecified injury of head, initial encounter; R41.3 Other amnesia; W19.XXXA Unspecified fall, initial encounter; Y92.002 Bathroom of unspecified non-institutional (private) residence as the place of occurrence of the external cause; Z79.83 Long term (current) use of bisphosphonates; Z79.899 Other long term (current) drug therapy
CPT/HCPCS: 99285; 36415; 94760; 93005; 93306; 85379; 80053; 80061; 84484; 85025; 85610; 85730; 81001; 72050; 71046; 93880; 70450; 71275; G0378 ×3; Q9967

== ENCOUNTER → 2019-02-25 | Outpatient (CLI) | payer OTHER ==
--- NOTE | 2019-02-27 13:34 | MM ---
Reason for exam: screening (asymptomatic). Last mammogram was performed 1 year ago. History: Patient is postmenopausal. Benign core biopsy of the right breast, March 2007. Took estrogen for 12 years beginning at age 40. Physical Findings: A clinical breast exam by your physician is recommended on an annual basis and results should be correlated with mammographic findings. MG 3D Screening Mammo W/Cad Bilateral CC and MLO view(s) were taken. Prior study comparison: February 12, 2018, bilateral MG screening mammo w CAD. January 30, 2017, bilateral MG 3d screening mammo w/cad. The breast tissue is heterogeneously dense. This may lower the sensitivity of mammography. Previous mammotome biopsy in the right and left breast. There is no discrete abnormality. No significant changes when compared with prior studies. ASSESSMENT: Benign, BI-RAD 2 RECOMMENDATION: Routine screening mammogram of both breasts in 1 year.
== END | disposition home or self-care (01) ==
LOC: RADMAMWWP 12:38
PROVIDERS: ATTEND Family Medicine
DX: Z12.31 Encounter for screening mammogram for malignant neoplasm of breast (principal)
CPT/HCPCS: 77063; 77067

== ENCOUNTER → 2019-03-07 | Outpatient (CLI) | payer OTHER ==
[2019-03-07 11:32] LABS: Basophils # (A) 0.1 k/uL (0-0.2); Basophils % (A) 2 %; Eosinophils # (A) 0.1 k/uL (0-0.7); Eosinophils % (A) 2 %; HCT 42.5 % (34.0-46.0); HGB 14.2 gm/dL (11.4-16.0); Lymphocytes # (A) 1.7 k/uL (1.0-4.8); Lymphocytes % (A) 31 %; MCH 28.9 pg (25.0-35.0); MCHC 33.5 g/dL (31.0-37.0); MCV 86.2 fL (80.0-100.0); Mean Platelet Volume 9.2; Monocytes # (A) 0.4 k/uL (0-1.0); Monocytes % (A) 7 %; Neutrophils % (A) 55 %; Platelet Count 241 k/uL (150-450); RBC 4.93 m/uL (3.80-5.40); RDW 12.4 % (11.5-15.5); WBC 5.4 k/uL (3.8-10.6)
== END | disposition home or self-care (01) ==
LOC: LABPAT 10:05
PROVIDERS: ATTEND Obstetrics & Gynecology Obstetrics
DX: Z01.812 Encounter for preprocedural laboratory examination (principal); Z01.818 Encounter for other preprocedural examination; I10 Essential (primary) hypertension; D17.9 Benign lipomatous neoplasm, unspecified; L72.0 Epidermal cyst
CPT/HCPCS: 36415; 85025

== ENCOUNTER 2019-03-18 06:12 | Day surgery (SDC) | payer OTHER ==
[2019-03-10 13:22] VITALS: BMI 23.1
--- NOTE | 2019-03-17 13:19 | P.HPIHPCON ---
History of Present Illness H&P Date: 03/17/19 Chief Complaint: vulvar lipoma/gluteal inclusion cyst This is a 63yo that presents with c/o enlarging vulvar lipoma, she states it has been there for years but would like it removed as it is getting bigger. she also has a cyst on her buttocks. she denies any pain she states she is up to date with her pap and mammogram. she has her annual exams with PCP. she is menopausal for many years now and denies PMB. Consent for Procedure: I have explained the operation/procedure to the patient, including the risks, benefits, side effects, alternative therapies (including not receiving the proposed treatment or service), the likelihood of the patient achieving his/her goals, and potential recuperation problems for the procedure/sedation/analgesia, as well as any blood products, if indicated. I also explained to the patient the risks, benefits and side effects of the alternatives, as well as the risks related to not receiving the proposed procedure, care, treatment, or services. - Constitutional Constitutional: Denies chills, Denies fatigue, Denies fever - EENT Ears, nose, mouth and throat: Denies headache - Cardiovascular Cardiovascular: Denies chest pain, Denies edema - Gastrointestinal Gastrointestinal: Denies constipation, Denies diarrhea, Denies nausea, Denies vomiting - Genitourinary (Female) Genitourinary: Reports as per HPI Past Medical History Past Medical History: Hyperlipidemia, Hypertension Additional Past Medical History / Comment(s): Hx migraines, History of Any Multi-Drug Resistant Organisms: None Reported Past Surgical History: Section, Hysterectomy Additional Past Surgical History / Comment(s): surgery for thyroglossal cyst Past Anesthesia/Blood Transfusion Reactions: No Reported Reaction Smoking Status: Former smoker - Past Family History Father Family Medical History: Cancer Medications and Allergies Home Medications Medication Instructions Recorded Confirmed Type ALPRAZolam [Xanax] 0.125 - 0.25 mg PO TID PRN 12/14/18 03/10/19 History Alendronate Sodium [Fosamax] 70 mg PO TU 12/14/18 03/10/19 History Benazepril [Lotensin] 5 mg PO HS 12/14/18 03/10/19 History Atorvastatin [Lipitor] 10 mg PO HS 03/10/19 03/10/19 History Calcium +Vitamind(Dose Unknown 1 tab PO DAILY 03/10/19 03/10/19 History Ibuprofen 200 mg PO DAILY PRN 03/10/19 03/10/19 History Allergies Allergy/AdvReac Type Severity Reaction Status Date / Time No Known Allergies Allergy Verified 03/10/19 13:12 Surgical - Exam Osteopathic Statement: *. No significant issues noted on an osteopathic structural exam other than those noted in the History and Physical/Consult. - General well developed, well nourished, no distress - Eyes PERRL - ENT normal mucosa, no congestion - Respiratory normal respiratory effort - Cardiovascular Rhythm: regular - Abdomen Abdomen: soft, non tender - Genitourinary large vulvar lipoma, right sided, mass is noted to be mobile and non tender in addition she has a noted inclusion cyst in the gluteal folds. normal perineum Assessment and Plan (1) Lipoma Status: Acute Code(s): D17.9 - BENIGN LIPOMATOUS NEOPLASM, UNSPECIFIED SNOMED Code(s): 15186368 (2) Inclusion cyst Status: Acute Code(s): L72.0 - EPIDERMAL CYST SNOMED Code(s): 975799900 Plan: she desires removal, we discussed lipoma removal under anesthesia. surgery removed and all questions answered. risks reviewed and pt states understanding. will proceed with right vulvar lipoma removal along with inclusion cyst removal.
[~2019-03-18 06:12] MED LIST: DEXAMETHASONE SOD PHOSPHATE 10 MG/ML 1 ML VIAL IV ONE; LACTATED RINGERS 1,000 ML IV SCH; LIDOCAINE 1% 20 ML VIAL (10MG/ML) FOR IV START INTRADERMA PRN; ONDANSETRON 4 MG/2 ML VIAL IVP ONE; Pre Op ABX Message 1 EACH MISC MISCELLANE ONE; fentaNYL (PF) 50 MCG/ML 2 ML AMP IV PRN
[2019-03-18] MEDS ORDERED: MIDAZOLAM 2 MG/2 ML VIAL IVP ONE (06:40)
[2019-03-18] MEDS ORDERED: fentaNYL (PF) 50 MCG/ML 2 ML AMP ONE (07:40)
[2019-03-18] MEDS ORDERED: LIDOCAINE 1% INJ 10MG/ML (20 ML MDV) ONE (07:40)
[2019-03-18] MEDS ORDERED: PROPOFOL 10 MG/ML 20 ML VIAL IV ONE (07:40)
[2019-03-18 08:30] VITALS: TEMP 98
[2019-03-18 08:42] VITALS: RESP 16
[2019-03-18] MEDS ORDERED: KETOROLAC 30 MG/ML 1 ML VIAL IVP ONE ×2 (08:50)
[2019-03-18] MEDS ORDERED: HYDROmorphone 1 MG/ML 1 ML SYRINGE IVP ONE (08:50)
[2019-03-18 09:30] VITALS: BP 169/73; PULSE 60
--- NOTE | 2019-03-18 09:34 | P.OP ---
Date of Procedure: 03/18/19 Preoperative Diagnosis: Large vulvar mass, gluteal inclusion cyst. Postoperative Diagnosis: Excision of vulvar sebaceous cyst, excision of gluteal inclusion cyst Anesthesia: MAC Surgeon: Rosana Rai Estimated Blood Loss (ml): 2 IV fluids (ml): 400 Urine output (ml): 0 Pathology: other (Sebaceous cyst wall) Condition: stable Disposition: PACU Indications for Procedure: Large presumed vulvar lipoma, on excision was noted to be sebaceous cyst. Operative Findings: Large vulvar sebaceous cyst, inclusion cyst noted in addition Description of Procedure: Patient was seen in the preoperative area and informed consent is obtained. All questions were answered. Patient was taken back to the operating suite where general anesthesia was obtained without difficulty by the anesthesia department. Patient was prepped and draped in normal sterile fashion in the dorsal lithotomy position. A vertical skin incision was made over the vulvar mass, copious amounts of thick discharge were removed the cyst wall was appreciated and excised. The subcutaneous tissue was then reapproximated with 2-0 Vicryl. The skin was closed in a subarticular fashion with 4-0 Vicryl. Addition there was a gluteal inclusion cysts noted a small incision was made over the mass, thick discharge was excised along with the cyst wall. Surgical glue was then placed over the incision as it was quite small. At this time all counts were correct 2 patient tolerated procedure well and was taken the recovery room awake in stable condition.
--- NOTE | 2019-03-21 07:29 | CDI ---
Outpatient Documentation Clarification Form Date: 03/20/19 CDS/Frame Pulley Mortising Machine Operator Name: Tamela Haddad Phone: If you have any questions, call Linh Rashid Claim Approver at [phone] Patient Name: Tiana Cardenas Admit Date: 03/18/19 Discharge Date: 03/18/19 ATTENTION: The [facility] coding Staff appreciate your assistance in clarifying documentation. Please respond to the clarification below the line at the bottom. The [facility] Coding staff will review the response and follow-up if needed. Please Note: Queries are made part of the Legal Health Record. If you have any questions, please contact the Claim Approver. Dear Dr. Rai, In order ot follow the official guidelines and to code to the greatest specificity, please provide the sizes for the vulvar lipoma and the gluteal cyst. Thank you for your kind consideration. vulvar lipoma was approximately 3-4 cms, gluteal cyst 1 cm in greatest dimesion MTDD
== END 2019-03-18 10:23 | disposition home or self-care (01) ==
LOC: OR 06:12
PROVIDERS: ATTEND Obstetrics & Gynecology Obstetrics
DX: N90.7 Vulvar cyst (principal); L72.0 Epidermal cyst; E78.5 Hyperlipidemia, unspecified; I10 Essential (primary) hypertension; Z90.710 Acquired absence of both cervix and uterus; Z87.891 Personal history of nicotine dependence; Z80.9 Family history of malignant neoplasm, unspecified; Z79.899 Other long term (current) drug therapy
CPT/HCPCS: 88304; 11426; 11401; J2250; J1100; J2405; J2001; J3010; J1885; J1170; J2704

== ENCOUNTER → 2019-12-25 | Outpatient (CLI) | payer MEDICARE, OTHER ==
--- NOTE | 2019-12-25 15:20 | CONS ---
CONSULTATION DATE OF SERVICE: 12/25/2019 A 64-year-old lady who has been evaluated in the [facility] for possible obstructive sleep apnea-hypopnea syndrome. HISTORY OF PRESENT ILLNESS/SLEEP-WAKE EVALUATION: Patient had home sleep apnea test about 4 years ago, but she does not know the results of the study. Presently, her sleep schedule from 9 to 10 p.m. until 4 to 6 a.m. No problems with falling asleep, although she has TV in bedroom and she wakes up from sleep about 3 times with one episode of nocturia. According to her , she snores loudly and has witnessed episodes of stopped breathing during sleep. Occasionally, she wakes up also with choking, grinding teeth and gasping for air. During the day she has problems with memory, episodes of anxiety, [place] Sleepiness Scale significantly increased to 12. She usually feels sleepiness around 2 to 3 pm. PAST MEDICAL HISTORY: Positive for hypertension, anxiety, hyperlipidemia, vertigo. PAST SURGICAL HISTORY: Total hysterectomy, x2. MEDICATIONS: Atorvastatin 10 mg once daily, meclizine 25 mg up to 3 times daily if needed, alprazolam 0.25 mg half tablet to one tablet up to 3 times a day if needed, Benazepril 10 mg once daily, Fosamax 70 mg once weekly, Glucosamine chondroitin 2 capsules twice daily, calcium and D3 supplement. SOCIAL HISTORY: Positive for smoking about 20 pack years, quit about 30 years ago. Alcohol consumption occasional. FAMILY HISTORY: Positive for stroke, cancer, hypertension, lung problems. REVIEW OF SYSTEMS: Awakenings from sleep, sleepiness during the day. PHYSICAL EXAM: lady without distress, BP 152/82, HR 64, RR 16, height 5, 5, weight 141, BMI 23.4, temperature 98.1, oxygen saturation at room air 96%. OROPHARYNX: Extremely low position of soft palate. Mallampati 4. NECK: 13 inches in circumference. LUNGS: Clear to percussion and to auscultation. Good air exchange. No wheezing or rhonchi. HEART: S1, S2 regular. No murmurs, gallops, or rubs. ABDOMEN: Soft and nontender. Bowel sounds are present. No organomegaly appreciated. EXTREMITIES: No clubbing or cyanosis. HARDWOOD FLOOR SANDER: Awake, alert, and oriented X3. Cranial nerves 2 to 7 intact. There is no fasciculation or atrophy. noted. No focal deficits observed. IMPRESSION: 1. Snoring, witnessed episodes of stopped breathing during the sleep, extremely low position of soft palate, obstructive sleep apnea-hypopnea syndrome. 2. Hypertension. 3. History of anxiety. 4. Hyperlipidemia. 5. History of episodes of vertigo. 6. Status post total hysterectomy. 7. Status post x2. PLAN: 1. Polysomnography for evaluation of patient's breathing during sleep. 2. CPAP/BiPAP titration if sleep study confirms obstructive sleep apnea-hypopnea syndrome. 3. Preferable position during sleep on the side. 4. No driving if patient feels any sleepiness. 5. I will see patient for follow up visit to explain results of testing and following plan. Thank you very much for referring this patient for consultation. Sincerely, Alejandro James MD, PhD, FAASM Diplomat of [employer] [facility] [place] MMODL / IJN: [id number] /
== END | disposition home or self-care (01) ==
LOC: SLEEP 13:50
PROVIDERS: ATTEND Internal Medicine
DX: G47.33 Obstructive sleep apnea (adult) (pediatric) (principal); I10 Essential (primary) hypertension; E78.5 Hyperlipidemia, unspecified; Z86.59 Personal history of other mental and behavioral disorders; Z90.710 Acquired absence of both cervix and uterus; Z86.69 Personal history of other diseases of the nervous system and sense organs
CPT/HCPCS: 99211

== ENCOUNTER → 2020-03-01 | Outpatient (CLI) | payer MEDICARE, OTHER ==
--- NOTE | 2020-03-02 11:29 | MM ---
Reason for exam: screening (asymptomatic). Last mammogram was performed 1 year ago. History: Patient is postmenopausal. Benign core biopsy of the right breast, March 2007. Took estrogen for 12 years beginning at age 40. Physical Findings: A clinical breast exam by your physician is recommended on an annual basis and results should be correlated with mammographic findings. MG 3D Screening Mammo W/Cad Bilateral CC and MLO view(s) were taken. Prior study comparison: February 25, 2019, bilateral MG 3d screening mammo w/cad. February 12, 2018, bilateral MG screening mammo w CAD. The breast tissue is heterogeneously dense. This may lower the sensitivity of mammography. Finding: There are typically benign dystrophic calcifications in the anterior position of the left breast. Previous mammotome biopsy in the right breast. There is a chronic nodularity in the right anterior breast. There is no discrete abnormality. ASSESSMENT: Benign, BI-RAD 2 RECOMMENDATION: Routine screening mammogram of both breasts in 1 year.
--- NOTE | 2020-03-02 15:47 | BD ---
EXAMINATION TYPE: Axial Bone Density DATE OF EXAM: 03/01/2020 COMPARISON: 11.23.2015 CLINICAL HISTORY: 64 YR OLD FEMALE....ICD-10 CODE: Z78.0 POST MENOPAUSAL Height: 64.4 Weight: 141 FRAX RISK QUESTIONS: Secondary Osteoporosis: YES 3. Menopause before 45: YES RISK FACTORS HISTORY OF: HX OF ANKLE FX < 40 YRS OLD Active: YES Postmenopausal woman: TOTAL HYST AT AGE 40 Take estrogen and/or progesterone medications: YES IN THE PAST FOR ABOUT 12 YRS Hyperparathyroidism: NO Adrenal Insufficiency: NO MEDICATIONS: Osteoporosis Medications: YES, FOSAMAX, FOR ABOUT 3 YRS Additional Medications: BP MEDS, XANAX PRN, STATIN FOR CHOLESTEROL, VIT D AND CALCIUM Additional History: HYPERTENSION, CHOLESTEROL, EXAM MEASUREMENTS: Bone mineral densitometry was performed using the [employer] System. Bone mineral density as measured about the Lumbar spine is: ----- L1-L4(G/cm2): 1.247 T Score Values are as follows: ----- L1: 0.5 ----- L2: 0.1 ----- L3: 1.5 ----- L4: 0.1 ----- L1-L4: 0.6 Bone mineral density has: Increased 14.5% since study of: 11.23.2015 Bone mineral density about the R hip (g/cm2): 0.737 Bone mineral density about the L hip (g/cm2): 0.774 T Score values are as follows: -----R Neck: -1.4 -----L Neck: -0.6 -----R Total: -2.2 -----L Total: -1.9 Bone mineral density has: Increased 6.3% since study of: 11.23.2015 FRAX%s: THERE IS A 8.7% CHANCE FOR A MAJOR OSTEOPOROTIC FX AND A 0.9% FOR HIP.....PROBABILITY FOR F X IN 10 YRS TIME IMPRESSION: Osteopenia (T Score between -2.5 and -1). There is slightly increased risk of fracture and the patient may be considered for treatment. Re-Screen 2-5 years. NOTE: T-SCORE=SD OF THE YOUNG ADULT MEAN.
== END | disposition home or self-care (01) ==
LOC: RADMAMWWP 10:04
PROVIDERS: ATTEND Family Medicine
DX: Z12.31 Encounter for screening mammogram for malignant neoplasm of breast (principal); M85.80 Other specified disorders of bone density and structure, unspecified site; Z78.0 Asymptomatic menopausal state
CPT/HCPCS: 77063; 77067; 77080

== ENCOUNTER → 2020-03-17 | Outpatient (CLI) | payer MEDICARE, OTHER ==
--- NOTE | 2020-03-17 12:43 | SFUN ---
SLEEP CENTER FOLLOW UP NOTE DATE OF SERVICE: 03/17/2020. This 64-year-old lady who has been followed in Sleep Center for treatment of obstructive sleep apnea-hypopnea syndrome. Recently, patient had a polysomnogram which showed obstructive and central sleep apnea events with apnea-hypopnea index 18.8. Then patient had CPAP titration with CPAP 8 cm of water patient's respiration totally normalized. Apnea-hypopnea index reduced to 1.1 per one hour. Subsequently, the patient received her CPAP equipment and the pressure in the machine prescribed 8 cm of water. The patient is able to use equipment practically every night feel better with the machine. I checked reading from CPAP unit. CPAP pressure is 8 cm of water. Usage is 100% of the time more than 4 hours. Average usage is 7 hours and 10 minutes. No leak, 95% of leak is 0 L/minute. At the same time, apnea-hypopnea index was 10.2, which include 4.6 central apnea index, 4.8 obstructive events index and 0.7, hypopnea index. MEDICATIONS: Atorvastatin 10 mg once daily, meclizine 25 mg up to 3 times daily, alprazolam 0.25 mg half tablet to one tablet up to 3 times daily as needed, benazepril 10 mg once daily, Fosamax 70 mg once a week, glucosamine chondroitin two capsules twice daily, calcium supplement, vitamin D3 supplement. PHYSICAL EXAMINATION: GENERAL: Patient in no distress. VITAL SIGNS: BP 150/82, HR 68, RR 15, weight 142 pounds, temperature 98.2, oxygen saturation at room air 96%. HEENT: PERRLA, EOMI. Oropharynx extremely low position of soft palate. Mallampati 4. NECK: Supple, no JVD. Thyroid is not palpable. LUNGS: Clear to percussion and to auscultation. Good air exchange. No wheezing or rhonchi. HEART: S1, S2 regular. No murmurs, gallops, or rubs. ABDOMEN: Soft and nontender. Bowel sounds are present. No organomegaly appreciated. EXTREMITIES: No clubbing or cyanosis. BATCH RECORDS CLERK: Awake, alert, and oriented X3. Cranial nerves 2 to 7 intact. There is no fasciculation or atrophy. noted. No focal deficits observed. IMPRESSION: 1. Obstructive sleep apnea and central sleep apnea-hypopnea syndrome. Patient demonstrated 100% compliance with treatment, benefitting from treatment, but apnea- hypopnea index still above perfect range. There is improvement, but from moderate sleep, apnea-hypopnea index reduced to mild sleep apnea. 2. Hypertension. 3. History of anxiety. 4. Hyperlipidemia. 5. History of vertigo. 6. Status post total hysterectomy. 7. Status post . PLAN: 1. I changed regimen of the machine to automatic range of the pressure 4-9 cm of water. 2. Patient will continue to use PAP equipment every night for the whole night. 3. Sleep hygiene with regular time in bed for at least 7-1/2 to 8 hours. 4. Precautions related to driving. No driving if feeling sleepiness. 5. I will maintain all necessary prescription for PAP supplies including mask, tube, filters. 6. Watching weight. 7. No driving if feeling sleepiness. 8. Follow-up visit in 2 months or earlier if patient has any problems. Thank you very much for allowing me to participate in management of your patient. Sincerely, Alejandro James MD, PhD, FAASM Diplomat of [place] [employer] [place] [employer] Developer Automatic of [facility] [place] MMODL / IJN: [id number] /
== END | disposition home or self-care (01) ==
LOC: SLEEP 10:37
PROVIDERS: ATTEND Internal Medicine
DX: G47.33 Obstructive sleep apnea (adult) (pediatric) (principal); I10 Essential (primary) hypertension; E78.5 Hyperlipidemia, unspecified; Z86.59 Personal history of other mental and behavioral disorders; Z90.710 Acquired absence of both cervix and uterus; Z86.69 Personal history of other diseases of the nervous system and sense organs; Z99.89 Dependence on other enabling machines and devices; Z98.890 Other specified postprocedural states; Z79.899 Other long term (current) drug therapy

== ENCOUNTER → 2020-05-13 | Outpatient (CLI) | payer MEDICARE, OTHER ==
--- NOTE | 2020-05-13 16:35 | SFUN ---
SLEEP CENTER FOLLOW UP NOTE DATE OF SERVICE: 05/13/2020 HISTORY OF PRESENT ILLNESS: This 64-year-old lady who has been followed in Sleep Center for treatment of obstructive and central sleep apnea-hypopnea syndrome. During previous visit, which was about 2 months ago with a CPAP pressure of 8 cm of water, apnea-hypopnea index reading from the machine was 10.2, which included 4.6 central apneas and 4.8 obstructive apnea-hypopnea index. At that time, I changed the pressure to the machine to automatic regimen with range of pressure 4-9 cm of water. Patient able to use her machine every night and she sleeps well and she feels very comfortable with her CPAP equipment. [place] Sleepiness Scale today is 5, which is normal. I checked her CPAP unit. Range of the pressure 4-9 with average pressure 8.8, usage 29 out of 30 nights for more than 4 hours, average usage is 7.6 hours per night. Apnea- hypopnea index 7.7, which include 4.3, central apnea index. MEDICATIONS: Benazepril 10 mg once a day, Fosamax 70 mg once a week, atorvastatin 10 mg once a day, meclizine 25 mg once a day, alprazolam 0.25 mg on as needed basis for anxiety. PHYSICAL EXAMINATION: GENERAL: Patient in no distress. VITAL SIGNS: BP 121/75, HR 60, RR 12, height 5 feet 5 inches, weight 144.6, temperature 96.3, oxygen saturation at room air 98%. HEENT: PERRLA, EOMI. Oropharynx extremely low position of soft palate, Mallampati 4. NECK: Supple, no JVD. Thyroid is not palpable. LUNGS: Clear to percussion and to auscultation. Good air exchange. No wheezing or rhonchi. HEART: S1, S2 regular. No murmurs, gallops, or rubs. ABDOMEN: Soft and nontender. Bowel sounds are present. No organomegaly appreciated. EXTREMITIES: No clubbing or cyanosis. GENERAL INTERN: Awake, alert, and oriented X3. Cranial nerves 2 to 7 intact. There is no fasciculation or atrophy. noted. No focal deficits observed. IMPRESSION: 1. Obstructive and central sleep apnea-hypopnea syndrome. Patient demonstrated 100% compliance with treatment, benefitting from treatment, very minimal abnormalities of respiration while on CPAP. Clinically, she feels well. 2. Hypertension. 3. History of anxiety. 4. Hyperlipidemia. 5. History of vertigo. 6. Status post total hysterectomy. 7. Status post . PLAN: 1. Patient will continue to use PAP equipment every night for the whole night. 2. Sleep hygiene with regular time in bed for at least 7-1/2 to 8 hours. 3. Precautions related to driving. No driving if feeling sleepiness. 4. I will maintain all necessary prescription for PAP supplies including mask, tube, filters. 5. Watching weight. 6. No driving if feeling sleepiness. 7. Follow-up visit in 6 months or earlier if patient has any problems. Thank you very much for allowing me to participate in management of your patient. Sincerely, Alejandro James MD, PhD, FAASM Diplomat of [place] [employer] [place] [employer] Export Agent of [facility] [place] MMODL / HUANGN: [id number] /
== END | disposition home or self-care (01) ==
LOC: SLEEP 10:18
PROVIDERS: ATTEND Internal Medicine
DX: G47.33 Obstructive sleep apnea (adult) (pediatric) (principal); I10 Essential (primary) hypertension; E78.5 Hyperlipidemia, unspecified; Z90.710 Acquired absence of both cervix and uterus; Z98.890 Other specified postprocedural states; Z86.59 Personal history of other mental and behavioral disorders; Z99.89 Dependence on other enabling machines and devices

== ENCOUNTER → 2020-12-09 | Outpatient (CLI) | payer MEDICARE, OTHER ==
--- NOTE | 2020-12-09 20:02 | SFUN ---
SLEEP CENTER FOLLOW UP NOTE DATE OF SERVICE: 12/09/2020 This 65-year-old lady has been followed in the Sleep Center for treatment of obstructive sleep apnea-hypopnea syndrome. The patient continues to use her CPAP equipment every night for the whole night. During her previous visit, apnea-hypopnea index reading from the machine was significantly increased at 10.2, and I changed the regimen in the machine to automatic with range of the pressure 4 to 9. [place] Sleepiness Scale today is 8, which is in normal range. I checked the CPAP unit. Range of the pressure is 4 to 9 cm of water. Average pressure is 8.7 cm of water, close to the maximal range of the pressure. Usage is 30/30 nights for more than 4 hours with average usage 6.9 hours per night. Leak is 1 L/minute. Apnea-hypopnea index is 6.2, which includes central apneas, 3.9. MEDICATIONS: 1. Atorvastatin 10 mg once a day. 2. Meclizine 25 mg up to 3 times a day as needed for vertigo. 3. Alprazolam 0.25 mg half to one tablet up to 3 times a day as needed. 4. Benazepril 10 mg once a day. 5. Fosamax 70 mg once a week. PHYSICAL EXAMINATION: GENERAL: Pleasant lady without distress. VITAL SIGNS: BP 153/79, HR 57, RR 12, height 5 feet 5 inches, weight 147.8, temperature 96.8, oxygen saturation at room air 96%, body mass index 24.6. HEENT: PERRLA, EOMI, evaluation of oropharynx showed tongue protrudes midline. Extremely low position of soft palate; Mallampati IV. NECK: Supple, no JVD. Thyroid is not palpable. LUNGS: Clear to percussion and to auscultation. Good air exchange. No wheezing or rhonchi. HEART: S1, S2 regular. No murmurs, gallops, or rubs. ABDOMEN: Soft and nontender. Bowel sounds are present. No organomegaly appreciated. EXTREMITIES: No clubbing or cyanosis. PSYCHOLOGICAL ANTHROPOLOGIST: Awake, alert, and oriented X3. Cranial nerves 2 to 7 intact. There is no fasciculation or atrophy. noted. No focal deficits observed. IMPRESSION: 1. Obstructive sleep apnea-hypopnea syndrome. The patient demonstrated 100% compliance with treatment, benefitting from treatment. Improvement in respiration by reading from the machine compared to her previous visit, but still apnea- hypopnea index is slightly above normal. This includes several central apneas. 2. Hypertension. 3. History of anxiety. 4. Hyperlipidemia. 5. History of vertigo. 6. Status post hysterectomy. 7. Status post . PLAN: 1. I increased the range of the auto pressure from 4-11 cm of water. 2. Patient will continue to use PAP equipment every night for the whole night. 3. Sleep hygiene with regular time in bed for at least 7-1/2 to 8 hours. 4. Precautions related to driving. No driving if feeling sleepiness. 5. I will maintain all necessary prescription for PAP supplies including mask, tube, filters. 6. Watching weight. 7. Follow-up visit in 6 months or earlier if patient has any problems. Thank you very much for allowing me to participate in the management of your patient. Sincerely, Alejandro James MD, PhD, FAASM Diplomat of [employer] Sleep Medicine Board of [place] [employer] of Internal Medicine Shear Grinder Operator Helper of [facility] [place] MMODL / HUANGN: [id number] /
== END ==
LOC: SLEEP 10:14
PROVIDERS: ATTEND Internal Medicine
DX: G47.33 Obstructive sleep apnea (adult) (pediatric) (principal); I10 Essential (primary) hypertension; F41.9 Anxiety disorder, unspecified; E78.5 Hyperlipidemia, unspecified; Z90.710 Acquired absence of both cervix and uterus; Z98.891 History of uterine scar from previous surgery; Z87.898 Personal history of other specified conditions; Z79.899 Other long term (current) drug therapy

== ENCOUNTER → 2021-04-11 | Outpatient (CLI) | payer MEDICARE, OTHER ==
--- NOTE | 2021-04-12 10:01 | MM ---
Reason for exam: screening (asymptomatic). Last mammogram was performed 1 year and 1 month ago. History: Patient is postmenopausal. Benign core biopsy of the right breast, March 2007. Took estrogen for 12 years beginning at age 40. Physical Findings: A clinical breast exam by your physician is recommended on an annual basis and results should be correlated with mammographic findings. MG 3D Screening Mammo W/Cad Bilateral CC and MLO view(s) were taken. Prior study comparison: March 01, 2020, bilateral MG 3d screening mammo w/cad. February 25, 2019, bilateral MG 3d screening mammo w/cad. The breast tissue is heterogeneously dense. This may lower the sensitivity of mammography. Stable benign calcifications. There is chronic nodularity in the right breast, stable. No significant changes when compared with prior studies. ASSESSMENT: Benign, BI-RAD 2 RECOMMENDATION: Routine screening mammogram of both breasts in 1 year.
== END | disposition home or self-care (01) ==
LOC: RADMAMWWP 08:56
PROVIDERS: ATTEND Family Medicine
DX: Z12.31 Encounter for screening mammogram for malignant neoplasm of breast (principal); Z78.0 Asymptomatic menopausal state
CPT/HCPCS: 77063; 77067

== ENCOUNTER → 2021-06-08 | Outpatient (CLI) | payer MEDICARE, OTHER ==
--- NOTE | 2021-06-08 14:48 | SFUN ---
SLEEP CENTER FOLLOW UP NOTE DATE OF SERVICE: 06/08/2021 65-year-old lady has been followed in Sleep Center for treatment of obstructive sleep apnea-hypopnea syndrome. During the previous 2 visits, her apnea-hypopnea index was increased to 10.2, and I changed regimen in the machine last time up to 11 cm of water. Patient continued to use her CPAP equipment every night without any significant problems, getting her supplies in time. Vivian Sleepiness Scale today is 4. I checked her CPAP unit. Range of the pressure 4 to 11, average pressure 9.7, usage 30/30 nights for more than 4 hours, 7.6 hours average per night which is good compliance. Leak is only 1 L/minute which means that mask fit well. Apnea-hypopnea index slightly increased to 5.1. CURRENT MEDICATIONS: Atorvastatin 10 mg once a day, meclizine 25 mg up to 3 times a day, not any vertigo episodes recently; alprazolam 0.25 mg half to one tablet up to 3 times a day, benazepril 10 mg 10 once a day. Fosamax 70 mg once a week, calcium and vitamin D3 supplement. PHYSICAL EXAMINATION: GENERAL: Patient in no distress. BP 152/77, HR 60, RR 16, weight 144.0, height 5 feet 5 inches, temperature 96.5, oxygen saturation at room air 98%. Oropharynx: Extremely low position of soft palate, Mallampati 4. NECK: Supple, no JVD. Thyroid is not palpable. LUNGS: Clear to percussion and to auscultation. Good air exchange. No wheezing or rhonchi. HEART: S1, S2 regular. No murmurs, gallops, or rubs. ABDOMEN: Soft and nontender. Bowel sounds are present. No organomegaly appreciated. EXTREMITIES: No clubbing or cyanosis. SKIFF OPERATOR: Awake, alert, and oriented X3. Cranial nerves 2 to 7 intact. There is no fasciculation or atrophy. noted. No focal deficits observed. IMPRESSION: 1. Obstructive sleep apnea-hypopnea syndrome. The patient demonstrated great compliance with treatment, borderline apnea-hypopnea index reading after pressure was increased during previous visit. 2. Hypertension. 3. History of anxiety. 4. History of vertigo. 5. Hyperlipidemia. 6. Status post hysterectomy. 7. Status post . PLAN: 1. I increased pressure up to 12 cm of water. 2. Patient will continue to use PAP equipment every night for the whole night. 3. Sleep hygiene with regular time in bed for at least 7-1/2 to 8 hours. 4. Precautions related to driving. No driving if feeling sleepiness. 5. I will maintain all necessary prescription for PAP supplies including mask, tube, filters. 6. Watching weight. 7. Follow-up visit in 6 months or earlier if patient has any problems. Thank you very much for allowing me to participate in the management of your patient. Sincerely, Alejandro James MD, PhD, FAASM Diplomat of [place] [employer] Sleep Medicine Board of [place] [employer] of Internal Medicine Data Integrity Consultant of [facility] [place] MMODL / IJN: [id number] /
== END ==
LOC: SLEEP 10:11
PROVIDERS: ATTEND Internal Medicine
DX: G47.33 Obstructive sleep apnea (adult) (pediatric) (principal); G47.36 Sleep related hypoventilation in conditions classified elsewhere; I10 Essential (primary) hypertension; F41.9 Anxiety disorder, unspecified; E78.5 Hyperlipidemia, unspecified; Z87.59 Personal history of other complications of pregnancy, childbirth and the puerperium; Z90.711 Acquired absence of uterus with remaining cervical stump; Z99.89 Dependence on other enabling machines and devices

== ENCOUNTER → 2021-12-21 | Outpatient (CLI) | payer MEDICARE, OTHER ==
--- NOTE | 2021-12-21 11:10 | P.PN ---
Subjective DATE: 12/21/2021 FOLLOW UP VISIT. Patient with obstructive sleep apnea hypopnea syndrome return to sleep center for follow-up visit. Information from previous visit have been reviewed. Patient is using PAP equipment every night for the whole night, getting PAP supplies in time. The patient does not have significant problems with the mask, PAP unit and humidification, but she wants to try nasal pillow mask. [place] sleepiness scale is 5, which is perfect. I checked information from PAP unit. PAP unit pressure 4-12, average 9.8 cm H2O. Usage is 90 % for more then 4 hours, average 6 hours per night. Leak is 4 l/m, which is great, especially because patient is using full face mask. Apnea Hypopnea Index is 5.9, which is borderline. MEDICATIONS:1. Atorvastatin 10 mg once a day 2. Benazepril 10 mg once a day 3. Meclizine 25 mg up to 3 times a day as needed 4. Xanax 0.25 mg half tablets up to 1 tablets up to 3 times a day 5. Fosamax once a week During physical exam: GENERAL: A pleasant patient without any distress. VITAL SIGNS: BP 134/74, HR 63, RR 14 , weight 142.4, temperature 96.3, oxygen saturation at room air 96 % . HEENT: PERRLA, EOMI.low position of soft palate, Mallapati 4 . NECK: Supple. No JVD. LUNGS: Clear to percussion and to auscultation. Good air exchange. No wheezing or rhonchi. HEART: S1, S2 regular. ABDOMEN: Soft and nontender.[] EXTREMITIES: No clubbing or cyanosis. VOLUNTEER SERVICES COORDINATOR: Awake, alert, and oriented x3. No focal deficit. Impressions: 1. Obstructive sleep apnea-hypopnea syndrome. Patient demonstrated great compliance with treatment, benefiting from treatment. 2. Hypertension. 3. History of anxiety. 4. History of vertigo. 5. Hyperlipidemia. 6. Status post . 7. Status post total hysterectomy. Plan: 1. Continue using PAP equipment every night for the whole night. Patient was given a nasal pillow mask she will try to use it, if necessary with chinstrap. 2. To change air filter at least 1-2 times per month. 3. PAP unit should stay lower then position of the head. 4. Advised patient to remove all remaining water from humidifier canister daily and make it dry after each usage. Refill canister with fresh distilled water b efore each usage. 5. Sleep hygiene with regular time in bed for at least 8 hours. 6. Precautions related to driving. No driving if feel any sleepiness. 7. I will maintain prescription for PAP supplies including mask, tube, filters. 8. Follow up visit in 4- 6 months or earlier if patient has any problems. 9. Watching weight. Thank you very much for allowing me to participate in the management of your patient. Alejandro James MD, PhD, FAASM. Diplomat of [place] Board of Sleep Medicine, Sleep Medicine Board by [place] Board of Internal Medicine Pararescue Manager of [facility] [place]
== END ==
LOC: SLEEP 10:41
PROVIDERS: ATTEND Internal Medicine
DX: G47.33 Obstructive sleep apnea (adult) (pediatric) (principal); I10 Essential (primary) hypertension; F41.9 Anxiety disorder, unspecified; E78.5 Hyperlipidemia, unspecified; Z90.710 Acquired absence of both cervix and uterus; Z86.69 Personal history of other diseases of the nervous system and sense organs; Z99.89 Dependence on other enabling machines and devices
CPT/HCPCS: 99212

== ENCOUNTER → 2022-04-12 | Outpatient (CLI) | payer MEDICARE ==
--- NOTE | 2022-04-12 14:14 | BD ---
EXAMINATION TYPE: Axial Bone Density DATE OF EXAM: 04/12/2022 COMPARISON: 03.01.2020 CLINICAL HISTORY: 66 years year old Female. ICD-10 CODE: M85.88 OTH DISORDER OF BONE Height: 63.8 Weight: 140 FRAX RISK QUESTIONS: Secondary Osteoporosis: YES 3. Menopause before 45: YES RISK FACTORS HISTORY OF: Active: YES Postmenopausal woman: TOTAL HYST AT 38 YRS OLD Take estrogen and/or progesterone medications: YES, FOR ABOUT 12 YRS IN THE PAST Hyperparathyroidism: NO Adrenal Insufficiency: NO MEDICATIONS: Osteoporosis Medications: YES, FOSAMAX, FOR ABOUT 7 YRS Additional Medications: XANAX, BP MEDS, STATIN FOR CHOLESTEROL MEDS, VIT D3, MULTIVITAMIN Additional History: HYPERTENSION, CHOLESTEROL, ANXIETY, OSTEOPOROSIS, EARLY MENOPAUSE, EXAM MEASUREMENTS: Bone mineral densitometry was performed using the [employer] System. Bone mineral density as measured about the Lumbar spine is: ----- L1-L4(G/cm2): 1.247 T Score Values are as follows: ----- L1: 0.8 ----- L2: 0.1 ----- L3: 0.9 ----- L4: 0.4 ----- L1-L4: 0.6 Bone mineral density has: REMAINED THE SAME 0.0% since study of: 03.01.2020 Bone mineral density about the R hip (g/cm2): 0.754 Bone mineral density about the L hip (g/cm2): 0.767 T Score values are as follows: -----R Neck: -1.5 -----L Neck: -1.3 -----R Total: -2.0 -----L Total: -1.9 Bone mineral density has: Increased 0.7% since study of: 03.01.2020 FRAX%s: The graph provided illustrates a 9.5% chance for a major osteoporotic fx and a 1.2% chance fo r the hips probability for fx in 10 years time. IMPRESSION: Osteopenia (T Score between -2.5 and -1). There is slightly increased risk of fracture and the patient may be considered for treatment. Re-Screen 2-5 years. NOTE: T-SCORE=SD OF THE YOUNG ADULT MEAN.
--- NOTE | 2022-04-13 08:22 | MM ---
Reason for Exam: Screening (asymptomatic). Last screening mammogram was performed 12 month(s) ago. Patient History: Menarche at age 11. First Full-Term at age 29. Late child-bearing (after 29). Left ovary removed at age 40. Right ovary removed at age 40. Hysterectomy at age 40. Postmenopausal. Patient has history of breast feeding. Estrogen, starting at age 40 for 12 years. 03/2007, Benign Core Biopsy on the right side. Risk Values: Melina 5 year model risk: 2.8%. NCI Lifetime model risk: 9.3%. Prior Study Comparison: 02/25/2019 Bilateral Screening Mammogram, [facility]. 03/01/2020 Bilateral Screening Mammogram, [facility]. 04/11/2021 Bilateral Screening Mammogram, [facility]. Tissue Density: The breast tissue is heterogeneously dense. This may lower the sensitivity of mammography. Findings: Analyzed By CAD. There is no suspicious group of microcalcifications or new suspicious mass in either breast. Overall Assessment: Benign, BI-RAD 2 Management: Screening Mammogram of both breasts in 1 year. A clinical breast exam by your physician is recommended on an annual basis and results should be correlated with mammographic findings. Electronically signed and approved by: Bharat Massey M.D. Radiologis
== END | disposition home or self-care (01) ==
LOC: RADMAMWWP 10:04
PROVIDERS: ATTEND Family Medicine
DX: Z12.31 Encounter for screening mammogram for malignant neoplasm of breast (principal); M85.89 Other specified disorders of bone density and structure, multiple sites; Z78.0 Asymptomatic menopausal state; Z98.890 Other specified postprocedural states
CPT/HCPCS: 77063; 77067; 77080

== ENCOUNTER → 2022-08-31 | Outpatient (CLI) | payer MEDICARE, OTHER ==
--- NOTE | 2022-08-31 15:27 | P.PN ---
Subjective DATE: 08/31/2022 FOLLOW UP VISIT. Patient with obstructive sleep apnea hypopnea syndrome return to sleep center for follow-up visit. Information from previous visit have been reviewed. Patient is using PAP equipment every night for the whole night, getting PAP supplies in time. The patient does not have significant problems with the mask, PAP unit and humidification. [place] sleepiness scale is 6, which is normal. I checked information from PAP unit. PAP unit pressure 4-12, average 10 cm H2O. Usage is 99% for more then 4 hours, average 6.5 hours per night. Leak is 5 l/m, which is in acceptable range. Apnea Hypopnea Index is 4.9, which is normal, but closed to border. MEDICATIONS:1. Atorvastatin 10 mg once a day 2. Benazepril 10 mg once a day 3. Fosamax 70 mg once a week 4. Meclizine 25 mg as needed 5. Alprazolam as needed 6. [] 7. [] 8. [] During physical exam: GENERAL: A pleasant patient without any distress. VITAL SIGNS: BP 154/82, HR 65, RR 16 , weight 143, temperature 97.9, oxygen saturation at room air 99 % . HEENT: PERRLA, EOMI.low position of soft palate, Mallapati 4 . NECK: Supple. No JVD. LUNGS: Clear to percussion and to auscultation. Good air exchange. No wheezing or rhonchi. HEART: S1, S2 regular. ABDOMEN: Soft and nontender.[] EXTREMITIES: No clubbing or cyanosis. LEVELER HELPER: Awake, alert, and oriented x3. No focal deficit. Impressions: 1. Obstructive sleep apnea-hypopnea syndrome. Patient demonstrated great compliance with treatment, benefiting from treatment. 2. Hypertension. 3. History of vertigo. 4. History of anxiety. 5. Hyperlipidemia. 6. Status post total hysterectomy. Plan: 1. Continue using PAP equipment every night for the whole night. 2. To change air filter at least 1-2 times per month. 3. PAP unit should stay lower then position of the head. 4. Advised patient to remove all remaining water from humidifier canister daily and make it dry after each usage. Refill canister with fresh distilled water before each usage. 5. Sleep hygiene with regular time in bed for at least 8 hours. 6. Precautions related to driving. No driving if feel any sleepiness. 7. I will maintain prescription for PAP supplies including mask, tube, filters. 8. Watching weight. 9. Follow up visit in 6 months or earlier if patient has any problems. Thank you very much for allowing me to participate in the management of your patient. Alejandro James MD, PhD, FAASM. Diplomat of [place] [employer], Sleep Medicine Board by [place] [employer] Human Factors Advisor Lead of [facility] [place]
== END ==
LOC: 3 N SLEEP 14:39
PROVIDERS: ATTEND Internal Medicine
DX: G47.33 Obstructive sleep apnea (adult) (pediatric) (principal); I10 Essential (primary) hypertension; F41.9 Anxiety disorder, unspecified; E78.5 Hyperlipidemia, unspecified; Z79.899 Other long term (current) drug therapy; Z99.89 Dependence on other enabling machines and devices; Z90.710 Acquired absence of both cervix and uterus; Z98.890 Other specified postprocedural states

== ENCOUNTER → 2023-04-17 | Outpatient (CLI) | payer MEDICARE, OTHER ==
--- NOTE | 2023-04-18 08:06 | MM ---
Reason for Exam: Screening (asymptomatic). Last screening mammogram was performed 12 month(s) ago. Patient History: Menarche at age 11. First Full-Term at age 29. Late child-bearing (after 29). Left ovary removed at age 40. Right ovary removed at age 40. Hysterectomy at age 40. Postmenopausal. Patient has history of breast feeding. Estrogen, starting at age 40 for 12 years. 03/2007, Benign Core Biopsy on the right side. Risk Values: Melina 5 year model risk: 2.8%. NCI Lifetime model risk: 8.9%. Prior Study Comparison: 11/23/2015 Bilateral Screening Mammogram, [facility]. 01/30/2017 Bilateral Screening Mammogram, [facility]. 02/12/2018 Bilateral Screening Mammogram, [facility] 02/25/2019 Bilateral Screening Mammogram, [facility]. 03/01/2020 Bilateral Screening Mammogram, [facility]. 04/11/2021 Bilateral Screening Mammogram, [facility]. 04/12/2022 Bilateral MG 3D screening mammo w/cad, [facility]. Tissue Density: The breast tissue is heterogeneously dense. This may lower the sensitivity of mammography. Findings: Analyzed By CAD. There is no suspicious group of microcalcifications or new suspicious mass in either breast. Overall Assessment: Benign, BI-RAD 2 Management: Screening Mammogram of both breasts in 1 year. . Patient should continue monthly self-breast exams. A clinical breast exam by your physician is recommended on an annual basis. This exam should not preclude additional follow-up of suspicious palpable abnormalities. Note on Melina scores and lifetime risk: 1. A Melina score greater than 3% is considered moderate risk. If this is the case, consider specialist referral to assess eligibility for a risk reducing agent. 2. If overall lifetime risk for the development of breast cancer is 20% or higher, the patient may qualify for future screening with alternating mammogram and breast MRI. Electronically signed and approved by: Bharat Massey M.D. Radiologis
== END | disposition home or self-care (01) ==
LOC: RADMAMWWP 09:25
PROVIDERS: ATTEND Family Medicine
DX: Z12.31 Encounter for screening mammogram for malignant neoplasm of breast (principal); Z78.0 Asymptomatic menopausal state
CPT/HCPCS: 77063; 77067

== ENCOUNTER → 2023-09-26 | Outpatient (CLI) | payer MEDICARE, OTHER ==
[2023-09-26 15:26] VITALS: BP 149/81; PULSE 62; RESP 16; TEMP 98.1
--- NOTE | 2023-09-26 16:51 | P.PROGSL ---
Subjective DATE: 09/26/2023 FOLLOW UP VISIT. Patient with obstructive sleep apnea hypopnea syndrome return to sleep center for follow-up visit. Information from previous visit have been reviewed. Patient is using PAP equipment every night for the whole night, getting PAP supplies in time. The patient does not have significant problems with the mask, PAP unit and humidification. Elrama sleepiness scale is 4, which is normal. I checked information from PAP unit. PAP unit pressure 4-13, average 8.4 cm H2O. Usage is 100% for more then 4 hours, average 5 hours per night. Leak is 5 l/m, which is in acceptable range. Apnea Hypopnea Index is 2.7, which is normal. MEDICATIONS: Please see below During physical exam: GENERAL: A pleasant patient without any distress. VITAL SIGNS: Please see below weight 124 pounds, BMI 21.2. HEENT: PERRLA, EOMI.low position of soft palate, Mallapati 4 . NECK: Supple. No JVD. LUNGS: Clear to percussion and to auscultation. Good air exchange. No wheezing or rhonchi. HEART: S1, S2 regular. ABDOMEN: Soft and nontender.[] EXTREMITIES: No clubbing or cyanosis. BUSINESS SERVICES ASSISTANT: Awake, alert, and oriented x3. No focal deficit. Impressions: 1. Obstructive sleep apnea-hypopnea syndrome. Patient demonstrated great compliance with treatment, benefiting from treatment. 2. Hypertension. 3. History of anxiety. 4. History of vertigo. 5. Hyperlipidemia. 6. Status post total hysterectomy. Plan: 1. Continue using PAP equipment every night for the whole night. 2. To change air filter at least 1-2 times per month. 3. PAP unit should stay lower then position of the head. 4. Advised patient to remove all remaining water from humidifier canister daily and make it dry after each usage. Refill canister with fresh distilled water before each usage. 5. Sleep hygiene with regular time in bed for at least 8 hours. 6. Precautions related to driving. No driving if feel any sleepiness. 7. I will maintain prescription for PAP supplies including mask, tube, filters. 8. Follow up visit in 6 months or earlier if patient has any problems. Thank you very much for allowing me to participate in the management of your patient. Alejandro James MD, PhD, FAASM. Diplomat of [place] [employer], Sleep Medicine Board by [place] [employer] [facility] [place] Objective - Vital Signs Vital Signs: Vital Signs Temp 98.1 F 09/26/23 15:26 Pulse 62 09/26/23 15:26 Resp 16 09/26/23 15:26 BP 149/81 09/26/23 15:26 Pulse Ox 95 09/26/23 15:26 FiO2 Intake & Output 09/25/23 09/26/23 09/26/23 18:59 06:59 18:59 Weight 56.245 kg Home Medications: Home Medications Medication Instructions Recorded Confirmed Type ALPRAZolam [Xanax] 0.125 - 0.25 mg PO TID PRN 12/14/18 09/26/23 History Alendronate Sodium [Fosamax] 70 mg PO TU 12/14/18 03/18/19 History Benazepril [Lotensin] 5 mg PO HS 12/14/18 09/26/23 History Atorvastatin [Lipitor] 10 mg PO HS 03/10/19 09/26/23 History Calcium +Vitamind(Dose Unknown 1 tab PO DAILY 03/10/19 03/18/19 History Ibuprofen 200 mg PO DAILY PRN 03/10/19 09/26/23 History Loratadine [Claritin] 5 mg PO DAILY 09/26/23 09/26/23 History Meclizine [Antivert] 25 mg PO TID PRN 09/26/23 09/26/23 History Vitamin D3/Vitamin K2 (Mk4) See Rx Instructions .ROUTE .COMPLEX 09/26/23 09/26/23 History [Vitamin K2 Plus D3 Tablet]
== END ==
LOC: 3 N SLEEP 14:34
PROVIDERS: ATTEND Internal Medicine
DX: G47.33 Obstructive sleep apnea (adult) (pediatric) (principal); I10 Essential (primary) hypertension; E78.5 Hyperlipidemia, unspecified; F41.9 Anxiety disorder, unspecified; Z86.69 Personal history of other diseases of the nervous system and sense organs; Z90.710 Acquired absence of both cervix and uterus; Z99.89 Dependence on other enabling machines and devices; Z79.899 Other long term (current) drug therapy
CPT/HCPCS: 99212

== ENCOUNTER → 2024-04-21 | Outpatient (CLI) | payer MEDICARE, OTHER ==
--- NOTE | 2024-04-21 11:19 | MM ---
Reason for Exam: Screening (asymptomatic). Last mammogram was performed 1 year(s) and 1 month(s) ago. Patient History: Menarche at age 11. First Full-Term at age 29. Late child-bearing (after 29). Left ovary removed at age 40. Right ovary removed at age 40. Hysterectomy at age 40. Postmenopausal. Patient has history of breast feeding. Estrogen, starting at age 40 for 12 years. 03/2007, Benign Core Biopsy on the right side. Risk Values: Melina 5 year model risk: 2.8%. NCI Lifetime model risk: 8.5%. Prior Study Comparison: 04/11/2021 Bilateral Screening Mammogram, [facility]. 04/12/2022 Bilateral MG 3D screening mammo w/cad, [facility]. 04/17/2023 Bilateral MG 3D screening mammo w/cad, [facility]. Tissue Density: There are scattered areas of fibroglandular density. Findings: Analyzed By CAD. A biopsy clip in the right breast is redemonstrated. Benign-appearing linear and small round calculations bilaterally are redemonstrated. There is no suspicious new group of microcalcifications or new suspicious mass in either breast. Overall Assessment: Benign, BI-RAD 2 Management: Screening Mammogram of both breasts in 1 year. . Patient should continue monthly self-breast exams. A clinical breast exam by your physician is recommended on an annual basis. This exam should not preclude additional follow-up of suspicious palpable abnormalities. Note on Melina scores and lifetime risk: 1. A Melina score greater than 3% is considered moderate risk. If this is the case, consider specialist referral to assess eligibility for a risk reducing agent. 2. If overall lifetime risk for the development of breast cancer is 20% or higher, the patient may qualify for future screening with alternating mammogram and breast MRI. [facility], , 04/21/2024 11:15 AM. Electronically signed and approved by: Santino Mantilla M.D.
--- NOTE | 2024-04-21 11:28 | BD ---
EXAMINATION TYPE: Axial Bone Density DATE OF EXAM: 04/21/2024 CLINICAL HISTORY: 68 years old Female. ICD-10 CODE: Z78.0 ASYMPTOMATIC MENOPAUSAL STA , Additional H istory: Height: 64 Weight: 125.3 FRAX RISK QUESTIONS: Alcohol (3 or more units per day): no Family History (Parent hip fracture): no Glucocorticoids (More than 3mos): no (Ex: prednisone, prednisolone, methylprednisolone, dexamethasone, and hydrocortisone). History of Fracture in Adulthood: ankle Secondary Osteoporosis: 1. Type 1 Diabetes: no 2. Hyperthyroidism: no 3. Menopause before 45: yes 4. Malnutrition: no 5. Chronic liver disease: no Rheumatoid Arthritis: no Current Tobacco Use: no RISK FACTORS HISTORY OF: Hip Fracture (Right/Left): no Spine Fracture: no History of Wrist Fracture: no Surgery to Spine/Hip(right/left)/Wrist (right/left): no MEDICATIONS: Thyroid Medications: no Osteoporosis Medications: no EXAM MEASUREMENTS: Bone mineral densitometry was performed using the [employer] System. Bone mineral density as measured about the Lumbar spine is: ----- L1-L4(G/cm2): 1.203 T Score Values are as follows: ----- L1: 0.3 ----- L2: 0.0 ----- L3: 0.6 ----- L4: -0.2 ----- L1-L4: 0.2 Z Score Values are as follows: ----- L1: 2.3 ----- L2: 2.0 ----- L3: 2.5 ----- L4: 1.7 ----- L1-L4: 2.1 Bone mineral density has: decreased -3.5 % since study of: 04/12/2022 Bone mineral density about the R hip (g/cm2): 0.754 Bone mineral density about the L hip (g/cm2): 0.779 T Score values are as follows: -----R Neck: -2.1 -----L Neck: -1.4 -----R Total: -2.0 -----L Total: -1.8 Z Score values are as follows: -----R Neck: -0.3 -----L Neck: 0.5 -----R Total: -0.4 -----L Total: -0.2 Bone mineral density has: increased 0.8 % since study of: 04/12/2022 FRAX%s: The graph provided illustrates a 11.4% chance for a major osteoporotic fx and a 2.5% chance f or the hips probability for fx in 10 years time. IMPRESSION: Osteopenia (T Score between -2.5 and -1) remains present. There is slightly increased risk of fracture and the patient may be considered for treatment. Re-Screen 2-5 years. NOTE: T-SCORE=SD OF THE YOUNG ADULT MEAN. [facility], , 04/21/2024 11:26 AM
== END | disposition home or self-care (01) ==
LOC: RADMAMWWP 10:28
PROVIDERS: ATTEND Family Medicine
DX: Z12.31 Encounter for screening mammogram for malignant neoplasm of breast (principal); R92.323 Mammographic fibroglandular density, bilateral breasts; M85.89 Other specified disorders of bone density and structure, multiple sites; Z78.0 Asymptomatic menopausal state
CPT/HCPCS: 77063; 77067; 77080

== ENCOUNTER → 2024-05-28 | Outpatient (CLI) | payer MEDICARE, OTHER ==
[2024-05-28 10:56] VITALS: BP 160/77; PULSE 66; RESP 16; TEMP 98.1
--- NOTE | 2024-05-28 11:51 | P.PROGSL ---
Subjective DATE: 05/28/2024 FOLLOW UP VISIT. Patient with obstructive sleep apnea hypopnea syndrome return to sleep center for follow-up visit. Information from previous visit have been reviewed. Patient is using PAP equipment every night for the whole night, getting PAP supplies in time. The patient does not have significant problems with the mask, PAP unit and humidification. Raven sleepiness scale is 6, which is normal. I checked information from PAP unit. PAP unit pressure 4-13, average 9 cm H2O. Usage is 98% for more then 4 hours, average 4.9 hours per night. Leak is 4l/m, which is in acceptable range. Apnea Hypopnea Index is 2.6, which is normal. MEDICATIONS have been reviewed, please see below. During physical exam: GENERAL: A pleasant patient without any distress. VITAL SIGNS: Please see below, weight is 128 lbs. HEENT: PERRLA, EOMI.low position of soft palate, Mallapati 4 . NECK: Supple. No JVD. LUNGS: Clear to percussion and to auscultation. Good air exchange. No wheezing or rhonchi. HEART: S1, S2 regular. ABDOMEN: Soft and nontender.[] EXTREMITIES: No clubbing or cyanosis. TILE PICKER: Awake, alert, and oriented x3. No focal deficit. Impressions: 1. Obstructive sleep apnea-hypopnea syndrome. Patient demonstrated great compliance with treatment, benefiting from treatment. 2. Hypertension. 3. History of anxiety. 4. History of vertigo. 5. Status post total hysterectomy. 6. Hyperlipidemia. Plan: 1. Continue using PAP equipment every night for the whole night. 2. Sleep hygiene with regular time in bed for at least 7.5-8 hours 3. PAP unit should stay lower then position of the head. 4. Advised patient to remove all remaining water from humidifier canister daily and make it dry after each usage. Refill canister with fresh distilled water before each usage. 5. Watching weight. 6. Precautions related to driving. No driving if feel any sleepiness. 7. I will maintain prescription for PAP supplies including mask, tube, filters. 8. Follow up visit in 8 months or earlier if patient has any problems. Thank you very much for allowing me to participate in the management of your patient. Alejandro James MD, PhD, FAASM. Diplomat of [place] [employer], Sleep Medicine Board by [place] [employer] [facility] [place] Objective - Vital Signs Vital Signs: Vital Signs Temp 98.1 F 05/28/24 10:56 Pulse 66 05/28/24 10:56 Resp 16 05/28/24 10:56 BP 160/77 05/28/24 10:56 Pulse Ox 97 05/28/24 10:56 FiO2 Intake & Output 05/27/24 05/28/24 05/28/24 18:59 06:59 18:59 Weight 58.06 kg Home Medications: Home Medications Medication Instructions Recorded Confirmed Type ALPRAZolam [Xanax] 0.125 - 0.25 mg PO TID PRN 12/14/18 05/28/24 History Alendronate Sodium [Fosamax] 70 mg PO TU 12/14/18 03/18/19 History Benazepril [Lotensin] 5 mg PO HS 12/14/18 05/28/24 History Atorvastatin [Lipitor] 10 mg PO HS 03/10/19 05/28/24 History Calcium +Vitamind(Dose Unknown 1 tab PO DAILY 03/10/19 03/18/19 History Ibuprofen 200 mg PO DAILY PRN 03/10/19 09/26/23 History Loratadine [Claritin] 5 mg PO DAILY 09/26/23 05/28/24 History Meclizine [Antivert] 25 mg PO TID PRN 09/26/23 05/28/24 History Vitamin D3/Vitamin K2 (Mk4) See Rx Instructions .ROUTE .COMPLEX 09/26/23 09/26/23 History [Vitamin K2 Plus D3 Tablet]
== END ==
LOC: 3 N SLEEP 10:27
PROVIDERS: ATTEND Internal Medicine
DX: G47.33 Obstructive sleep apnea (adult) (pediatric) (principal); I10 Essential (primary) hypertension; E78.5 Hyperlipidemia, unspecified; Z86.59 Personal history of other mental and behavioral disorders; Z90.710 Acquired absence of both cervix and uterus; Z86.69 Personal history of other diseases of the nervous system and sense organs
CPT/HCPCS: 99212